=== PATIENT | female | born 1990 | race Caucasian/White ===

== ENCOUNTER 2017-04-12 15:47 | Inpatient (IN) | payer BC ==
[2017-04-12] MEDS ORDERED: Sodium Chloride 0.9% 10 ML Syringe FLUSH PRN ×2 (15:54→16:45)
[2017-04-12] MEDS ORDERED: Sodium Chloride 0.9% 2.5 ML Syringe FLUSH PRN ×2 (15:54→16:45)
[2017-04-12] MEDS ORDERED: Misoprostol 200 MCG Tab PO PRN (15:54)
[2017-04-12] MEDS ORDERED: Methylergonovine 0.2 MG/1 ML Amp IM PRN (15:54)
[2017-04-12] MEDS ORDERED: Carboprost Tromethamine 250 MCG/1 ML Amp IM PRN (15:54)
[2017-04-12] MEDS ORDERED: Nalbuphine 10 MG/1 ML Vial IVPUSH PRN (15:54)
[2017-04-12] MEDS ORDERED: Water For Irrigation,Sterile 1,000 ML Container IRR PRN (15:54)
[2017-04-12] MEDS ORDERED: Butorphanol 1 MG/ML SDV IVPUSH PRN (15:54)
[2017-04-12] MEDS ORDERED: Lidocaine 1% 50 ML MDV INJECT PRN (15:54)
[2017-04-12] MEDS ORDERED: Oxytocin/0.9 % Sodium Chloride 30 UNIT/500 ML BAG IV SCH ×2 (16:00→16:45)
[2017-04-12] MEDS: Lactated Ringers 1,000 ML IV SCH ×3 (16:00→20:00)
[2017-04-12] MEDS ORDERED: Citric Acid/Sodium Citrate Solution 30 ML Cup PO SCH (16:45)
[2017-04-12] MEDS ORDERED: ceFAZolin 2 GM in Premix Bag 1 BAG IV ONE (16:45)
[2017-04-12] MEDS ORDERED: Lactated Ringers 1,000 ML IV SCH (16:45)
[2017-04-12] MEDS ORDERED: Morphine PF 1 MG/ML Amp ONE (16:47)
[2017-04-12] MEDS ORDERED: ceFAZolin 1 GM Vial ONE (16:53)
[2017-04-12] MEDS ORDERED: Ketorolac 30 MG/ML SDV ONE ×2 (16:53→16:54)
[2017-04-12] MEDS ORDERED: Ondansetron 4 MG/2 ML SDV ONE (16:53)
[2017-04-12] MEDS ORDERED: Nalbuphine 10 MG/1 ML Vial ONE ×2 (16:53→16:54)
[2017-04-12] MEDS ORDERED: ePHEDrine 50 MG/ML SDV ONE ×2 (16:53→16:54)
[2017-04-12] MEDS ORDERED: Dexamethasone 4 MG/ML 5 ML MDV ONE ×2 (16:53→16:54)
[2017-04-12] MEDS ORDERED: Terbutaline 1 MG/ML SDV SUBCUT ONE (17:00)
[2017-04-12] MEDS ORDERED: Succinylcholine/Normal Saline 200 MG/10 ML Syringe ONE (17:24)
[2017-04-12] MEDS ORDERED: Atropine 0.4 MG/ML SDV ONE ×2 (17:24→17:41)
[2017-04-12] MEDS ORDERED: Propofol 200 MG/20 ML SDV ONE (17:28)
[2017-04-12] MEDS: Ketorolac 30 MG/ML SDV IVPUSH SCH (17:30)
[2017-04-12] MEDS ORDERED: diphenhydrAMINE 50 MG/ML SDV IVPUSH PRN (18:31)
[2017-04-12] MEDS ORDERED: Ondansetron 4 MG/2 ML SDV IVPUSH PRN (18:31)
[2017-04-12] MEDS ORDERED: Bisacodyl 10 MG Supp RECTAL PRN (18:31)
[2017-04-12] MEDS ORDERED: Lanolin 100% Cream 7 GM Tube TOP PRN (18:31)
[2017-04-12] MEDS: fentaNYL 100 MCG/2 ML SDV IVPUSH PRN ×2 (18:35→18:40)
--- NOTE | 2017-04-12 18:44 | PCM.PREANE ---
Preanesthetic Assessment - Anesthesia/Transfusion/Family Hx Anesthesia History: Prior Anesthesia Without Reaction Family History of Anesthesia Reaction: No Transfusion History: No Prior Transfusion(s) - Review of Systems General: No Symptoms Pulmonary: No Symptoms Cardiovascular: No Symptoms Gastrointestinal: No Symptoms Neurological: No Symptoms Other: Reports: None - Physical Assessment NPO Status Date: 04/12/17 NPO Status Time: 12:00 O2 Sat by Pulse Oximetry: 100 Respiratory Rate: 21 Vital Signs: Last Vital Signs Temp 36.2 C 04/12/17 18:15 Pulse 76 04/12/17 18:30 Resp 21 H 04/12/17 18:30 BP 114/57 L 04/12/17 18:30 Pulse Ox 100 04/12/17 18:30 Height: 5 ft 4 in Weight: 208 lb ASA Class: 2E Mental Status: Alert & Oriented x3 Airway Class: Mallampati = 2 Dentition: Reports: Normal Dentition Thyro-Mental Finger Breadths: 3 Mouth Opening Finger Breadths: 3 ROM/Head Extension: Full Lungs: Clear to Auscultation, Normal Respiratory Effort Cardiovascular: Regular Rate, Regular Rhythm - Lab Values: Laboratory Last Values WBC 11.87 K/uL (4.0-11.0) H 04/12/17 16:10 RBC 4.54 M/uL (4.30-5.90) 04/12/17 16:10 Hgb 14.2 g/dL (12.0-16.0) 04/12/17 16:10 Hct 40.2 % (36.0-46.0) 04/12/17 16:10 MCV 88.5 fL (80.0-98.0) 04/12/17 16:10 MCH 31.3 pg (27.0-32.0) 04/12/17 16:10 MCHC 35.3 g/dL (31.0-37.0) 04/12/17 16:10 RDW Std Deviation 40.8 fl (28.0-62.0) 04/12/17 16:10 RDW Coeff of Roma 13 % (11.0-15.0) 04/12/17 16:10 Plt Count 185 K/uL (150-400) 04/12/17 16:10 MPV 11.50 fL (7.40-12.00) 04/12/17 16:10 Nucleated RBC % 0.0 /100WBC 04/12/17 16:10 Nucleated RBCs # 0 K/uL 04/12/17 16:10 Blood Type B POSITIVE 04/12/17 16:10 Antibody Screen NEGATIVE 04/12/17 16:10 - Allergies Allergies/Adverse Reactions: Allergies Allergy/AdvReac Type Severity Reaction Status Date / Time No Known Allergies Allergy Verified 09/17/14 17:58 - Acknowledgements Anesthesia Type Planned: General Anesthesia, Spinal Pt an Appropriate Candidate for the Planned Anesthesia: Yes Alternatives and Risks of Anesthesia Discussed w Pt/Guardian: Yes Pt/Guardian Understands and Agrees with Anesthesia Plan: Yes Additional Comments: care unremarkable. Cephalic earlier today....now in active labor and just went from cephalic to transverse with 8 to 9 cm dilation. VSS and reassuring signs. Plan SAB with duramorph and GETA backup plan. Patient accepts. PreAnesthesia Questionnaire HEENT History: Reports: None Other Respiratory History: exercise- induced asthma POLISHER BALANCE SCREWHEAD History: Reports: , Spontaneous Psychiatric History: Reports: None Hematologic History: Reports: None - Past Surgical History HEENT Surgical History: Reports: Oral Surgery GI Surgical History: Reports: Appendectomy Other GI Surgeries/Procedures: colon resection Other Musculoskeletal Surgeries/Procedures:: jaw surgery - SUBSTANCE USE Smoking Status *Q: Never Smoker Tobacco Use Within Last Twelve Months: Cigarettes Second Hand Smoke Exposure: No Recreational Drug Use History: No - HOME MEDS Home Medications: Home Meds Acetaminophen [Tylenol Extra Strength] 1,000 mg PO Q4H PRN #0 tablet 01/20/16 [ Rx] Benzocaine/Menthol [Dermoplast Pain Relief 20%-0.5% [place]] 78 gm TOP ASDIRECTED PRN #0 canister 01/20/16 [Rx] Docusate Sodium [Colace] 100 mg PO BID PRN #0 cap 01/20/16 [Rx] Ibuprofen [IJD: Ibuprofen] 800 mg PO Q6H PRN #0 tablet 01/20/16 [Rx] - CURRENT (IN HOUSE) MEDS Current Meds: Current Medications Bisacodyl (Dulcolax) 10 mg RECTAL .ONCE PRN PRN Reason: Constipation Diphenhydramine HCl (Benadryl) 25 mg IVPUSH Q6H PRN PRN Reason: Itching or Nausea Docusate Sodium (Colace) 100 mg PO BID [facility] Emollient Ointment (Lansinoh Hpa) 0 gm TOP ASDIRECTED PRN PRN Reason: Sore Nipples Fentanyl (Sublimaze) 50 - 100 mcg IVPUSH Q5M PRN PRN Reason: Pain (severe 7-10) Stop: 04/13/17 18:38 Lactated Ringer's (Ringers, Lactated) 1,000 mls @ 125 mls/hr IV ASDIRECTED [facility] Ibuprofen (Motrin) 800 mg PO Q8H PRN PRN Reason: mild pain or fever Ketorolac Tromethamine (Toradol) 30 mg IVPUSH Q6H [facility] Stop: 04/13/17 18:46 Ondansetron HCl (Zofran) 4 mg IV Q4H PRN PRN Reason: Nausea/Vomiting Oxycodone/Acetaminophen (Percocet 325-5 Mg) 1 tab PO Q4H PRN PRN Reason: Pain (moderate 4-6) Oxycodone/Acetaminophen (Percocet 325-5 Mg) 2 tab PO Q4H PRN PRN Reason: Pain (moderate 4-6) Discontinued Medications Atropine Sulfate (Atropine) Confirm Administered Dose 0.4 mg .ROUTE .STK-MED ONE Stop: 04/12/17 17:25 Atropine Sulfate (Atropine) Confirm Administered Dose 0.4 mg .ROUTE .STK-MED ONE Stop: 04/12/17 17:42 Butorphanol Tartrate (Stadol) 1 mg IVPUSH Q1H PRN PRN Reason: Pain Carboprost Tromethamine (Hemabate Ds) 250 mcg IM ASDIRECTED PRN PRN Reason: Post Hemorrhage Cefazolin Sodium (Ancef) Confirm Administered Dose 2 gm .ROUTE .STK-MED ONE Stop: 04/12/17 16:54 Citric Acid/Sodium Citrate (Bicitra Solution) 30 ml PO .ONCE [facility] Dexamethasone (Dexamethasone) Confirm Administered Dose 20 mg .ROUTE .STK-MED ONE Stop: 04/12/17 16:54 Dexamethasone (Dexamethasone) Confirm Administered Dose 20 mg .ROUTE .STK-MED ONE Stop: 04/12/17 16:55 Ephedrine Sulfate (Ephedrine Sulfate) Confirm Administered Dose 50 mg .ROUTE .STK-MED ONE Stop: 04/12/17 16:54 Ephedrine Sulfate (Ephedrine Sulfate) Confirm Administered Dose 50 mg .ROUTE .STK-MED ONE Stop: 04/12/17 16:55 Lactated Ringer's (Ringers, Lactated) 1,000 mls @ 150 mls/hr IV ASDIRECTED [facility] Last Admin: 04/12/17 16:55 Dose: 500 mls/hr Oxytocin/Sodium Chloride (Oxytocin 30 Unit/500 Ml-Ns) 30 unit in 500 mls @ 999 mls/hr IV TITRATE [facility] Oxytocin/Sodium Chloride (Oxytocin 30 Unit/500 Ml-Ns) 30 unit in 500 mls @ 250 mls/hr IV TIT[facility] Lactated Ringer's (Ringers, Lactated) 1,000 mls @ 500 mls/hr IV .BOLUS [facility] Cefazolin Sodium/Dextrose 2 gm (/ Premix) 50 mls @ 100 mls/hr IV ONETIME ONE Stop: 04/12/17 17:14 Ketorolac Tromethamine (Toradol) Confirm Administered Dose 30 mg .ROUTE .STK- MED ONE Stop: 04/12/17 16:54 Ketorolac Tromethamine (Toradol) Confirm Administered Dose 30 mg .ROUTE .STK- MED ONE Stop: 04/12/17 16:55 Lidocaine HCl (Xylocaine 1%) 50 ml INJECT .ONCE PRN PRN Reason: Laceration repair Methylergonovine Maleate (Methergine) 0.2 mg IM ASDIRECTED PRN PRN Reason: Post Hemorrhage Misoprostol (Cytotec) 200 mcg PO .ONCE PRN PRN Reason: Post Hemorrhage Morphine Sulfate (Duramorph Pf) Confirm Administered Dose 1 mg .ROUTE .STK-MED ONE Stop: 04/12/17 16:48 Nalbuphine HCl (Nubain) 10 mg IVPUSH Q1H PRN PRN Reason: Pain (severe 7-10) Nalbuphine HCl (Nubain) Confirm Administered Dose 10 mg .ROUTE .STK-MED ONE Stop: 04/12/17 16:54 Nalbuphine HCl (Nubain) Confirm Administered Dose 10 mg .ROUTE .STK-MED ONE Stop: 04/12/17 16:55 Ondansetron HCl (Zofran) Confirm Administered Dose 4 mg .ROUTE .STK-MED ONE Stop: 04/12/17 16:54 Propofol (Diprivan 20 Ml) Confirm Administered Dose 400 mg .ROUTE .STK-MED ONE Stop: 04/12/17 17:29 Sodium Chloride (Saline Flush) 10 ml FLUSH ASDIRECTED PRN PRN Reason: Keep Vein Open Sodium Chloride (Saline Flush) 2.5 ml FLUSH ASDIRECTED PRN PRN Reason: Keep Vein Open Sodium Chloride (Saline Flush) 10 ml FLUSH ASDIRECTED PRN PRN Reason: Keep Vein Open Sodium Chloride (Saline Flush) 2.5 ml FLUSH ASDIRECTED PRN PRN Reason: Keep Vein Open Sterile Water (Sterile Water For Irrigation) 1,000 ml IRR ASDIRECTED PRN PRN Reason: delivery Succinylcholine Chloride (Succinylcholine In Ns Pf) Confirm Administered Dose 200 mg .ROUTE .STK-MED ONE Stop: 04/12/17 17:25 Terbutaline Sulfate (Brethine) 0.25 mg SUBCUT ONETIME ONE Stop: 04/12/17 17:01
--- NOTE | 2017-04-12 18:53 | PCM.OPNOTE ---
- General Post-Op/Procedure Note Date of Surgery/Procedure: 04/12/17 Operative Procedure(s): Emergency section Findings: Female , Wt 3275grams, Apgars 8 and 9. Grossly normal placenta with 3 vessel cord. Normal uterus, ovaries and tubes Pre Op Diagnosis: IUP 38 weeks. Transverse position in active labor Post-Op Diagnosis: Same Anesthesia Technique: General ET Tube Primary Surgeon: Nelida Amos Patient Safety Sitter: Vivi Lepe Fluid Replacement, Intraop: 1,000 Output, Urine Amount: 200 EBL in mLs: 1,000 Complications: None Condition: Good Free Text/Narrative:: Intake & Output 04/12/17 04/12/17 04/12/17 06:59 14:59 22:59 Output Total 200 Balance -200
[2017-04-12] MEDS: Morphine PF 30 MG/30 ML PCA Vial IV SCH (19:00)
[2017-04-12] MEDS: Docusate Sodium 100 MG Cap PO SCH (23:56)
[2017-04-13] MEDS: Morphine PF 30 MG/30 ML PCA Vial IV SCH ×3 (00:16→15:39)
[2017-04-13] MEDS: Ketorolac 30 MG/ML SDV IVPUSH SCH ×3 (00:24→12:35)
--- NOTE | 2017-04-13 01:25 | OR ---
SURGEON: Nelida Amos MD DATE OF PROCEDURE: 04/12/2017 BRIDGE GANG WORKER: Dr. Lepe. PREOPERATIVE DIAGNOSES: 1. Intrauterine at 38 weeks gestation. 2. Transverse lie, in active labor. POSTOPERATIVE DIAGNOSES: 1. Intrauterine gestation at 38 weeks. 2. Unstable lie in active labor,Breech presentation at delivery. 3. Delivered. PROCEDURE: Emergency low transverse section via Pfannenstiel. ANESTHESIA: General endotracheal. ESTIMATED BLOOD LOSS: 1000 mL. IV FLUIDS: 1000 mL. URINE OUTPUT: 200 mL, clear at the end of the procedure. DISPOSITION: Stable to PACU FINDINGS: Female , weight 3275 grams, score 8 and 9 at 1 and 5 minutes respectively. Grossly normal placenta with 3-vessel cord. Normal appearing uterus, tubes, and ovaries. Extensive adhesions on the left side between the sigmoid colon and the parietal peritoneum. BRIEF HISTORY: Stephanie is a 26-year-old, G3, P 1-0-1-1, who presented to Labor and Delivery at 38 weeks gestation in active labor. When she examined by the admitting RN, she was found to be 6 cm dilated,cephalic presentation. She progressed rather fast and was 8cm within 30mins of her presentation. When I evaluated her, I felt limbs, limbs and she was 8-9 cm dilated, 100% effaced, intact membrane. Bedside sonogram confirmed a transverse lie with head to maternal right, back up. Based on these findings, an emergent section was called after discussing the procedure risk and benefits with the patient. The patient was good every 1 to 2minutes, CAT 1 tracing and Terbutaline was administered enroute to the OR DESCRIPTION OF PROCEDURE: After several unsuccessful attempts at placement of spinal anesthesia by the anesthetic personnel, she was placed in dorsal lithotomy position, prepped and draped, and a rapid induction of general anesthesia was performed. Appropriate time-out was held and she received 2 g of Ancef. A Pfannenstiel incision was made and carried through to the underlying fascia with the scalpel. The fascia was incised in the midline and this incision was extended laterally with blunt dissection. The rectus muscle was in the midline. The underlying parietal peritoneum was identified and entered bluntly. The incision was extended laterally. A bladder blade was placed. A transverse incision was then made on the uterus with a scalpel and this incision was extended upwards and downwards bluntly. Clear amniotic fluid was noted. The was found to be in an flexed breech presentation. The feet were then grasped, lifted out of the pelvis and the infant was then delivered by routine breech extraction maneuvers atraumatically. The was vigorous and cried spontaneously upon delivery. The cord was double clamped and cut, and the infant was handed over to the awaiting medical imaging director, Dr. Drew. Cord blood and gas samples were obtained. The placenta was delivered spontaneously by massage. The uterus was exteriorized and cleaned of all clots and debris. The edges of the uterine incision were then grasped with Allis clamps. The incision was closed in 2 layers using 0 Vicryl suture. The first layer was closed in a running locked fashion and a second imbricating layer was performed to obtain excellent hemostasis. Copious irrigation was performed. Then, the gutters were cleaned of clots and debris and the uterus was returned into the abdominal cavity. The sigmoid colon was noted to be extensively adherent to the parietal peritoneum on the left side and this was very close to the edge of the peritoneal incision. Based on this finding, the peritoneal layer was not closed. The muscle was reapproximated with 2-0 Vicryl using three interrupted sutures. The subfacial layer was found to be hemostatic The fascia was closed with 0 Vicryl suture in a running fashion. The subcuticular layer was made hemostatic with electrocautery and this layer was approximated with 3-0 plain sutures. The skin was then closed using subcuticular stitches using 4-0 Monocryl suture. The patient tolerated the procedure well. Sponge, instrument, and needle counts were correct at the end of the procedure. The patient was taken to the recovery room in stable condition and baby to nursery in stable condition. ADUMVIV / MODL /[id number] DAVY
[2017-04-13] MEDS: Lactated Ringers 1,000 ML IV SCH (04:18)
--- NOTE | 2017-04-13 08:31 | PCM48HPAN ---
Post Anesthesia Note - EVALUATION WITHIN 48HRS OF ANESTHETIC Vital Signs in Normal Range: Yes Patient Participated in Evaluation: Yes Respiratory Function Stable: Yes Airway Patent: Yes Cardiovascular Function Stable: Yes Hydration Status Stable: Yes Pain Control Satisfactory: Yes Nausea and Vomiting Control Satisfactory: Yes Mental Status Recovered: Yes - COMMENTS/OBSERVATIONS Free Text/Narrative:: no back ache, no head ache, mild throat irritation not requiring treatment
[2017-04-13] MEDS: Docusate Sodium 100 MG Cap PO SCH ×2 (09:41→22:04)
--- NOTE | 2017-04-13 10:32 | PCM.PNPP ---
- General Info Functional Status: Reports: Pain Controlled. Denies: Tolerating Diet (no nausea , but no appetite), Ambulating, Urinating (catheter in place) - Review of Systems General: Reports: No Symptoms HEENT: Reports: No Symptoms Pulmonary: Reports: No Symptoms Cardiovascular: Reports: No Symptoms Gastrointestinal: Reports: No Symptoms Genitourinary: Reports: No Symptoms Musculoskeletal: Reports: No Symptoms Skin: Reports: No Symptoms Neurological: Reports: No Symptoms Psychiatric: Reports: No Symptoms - Patient Data Vital Signs - Most Recent: Last Vital Signs Temp 36.5 C 04/13/17 08:00 Pulse 81 04/13/17 08:00 Resp 14 04/13/17 08:00 BP 93/53 L 04/13/17 08:00 Pulse Ox 95 04/13/17 08:00 Weight - Most Recent: 94.347 kg I&O - Last 24 Hours: Intake & Output 04/12/17 04/13/17 04/13/17 22:59 06:59 14:59 Intake Total 2800 Output Total 775 400 Balance 2024 - Lab Results - Last 24 Hours: Laboratory Results - last 24 hr 04/12/17 04/12/17 04/13/17 Range/Units 16:10 16:10 05:45 WBC 11.87 H (4.0-11.0) K/uL RBC 4.54 (4.30-5.90) M/uL Hgb 14.2 11.0 L (12.0-16.0) g/dL Hct 40.2 31.9 L (36.0-46.0) % MCV 88.5 (80.0-98.0) fL MCH 31.3 (27.0-32.0) pg MCHC 35.3 (31.0-37.0) g/dL RDW Std Deviation 40.8 (28.0-62.0) fl RDW Coeff of Roma 13 (11.0-15.0) % Plt Count 185 (150-400) K/uL MPV 11.50 (7.40-12.00) fL Nucleated RBC % 0.0 /100WBC Nucleated RBCs # 0 K/uL Blood Type B POSITIVE Antibody Screen NEGATIVE Med Orders - Current: Current Medications Bisacodyl (Dulcolax) 10 mg RECTAL .ONCE PRN PRN Reason: Constipation Diphenhydramine HCl (Benadryl) 25 mg IVPUSH Q6H PRN PRN Reason: Itching or Nausea Docusate Sodium (Colace) 100 mg PO BID [facility] Last Admin: 04/13/17 09:41 Dose: 100 mg Emollient Ointment (Lansinoh Hpa) 0 gm TOP ASDIRECTED PRN PRN Reason: Sore Nipples Last Admin: 04/13/17 09:41 Dose: 1 tube Escitalopram Oxalate (Lexapro) 10 mg PO DAILY [facility] Fentanyl (Sublimaze) 50 - 100 mcg IVPUSH Q5M PRN PRN Reason: Pain (severe 7-10) Stop: 04/13/17 18:38 Last Admin: 04/12/17 18:40 Dose: 50 mcg Lactated Ringer's (Ringers, Lactated) 1,000 mls @ 125 mls/hr IV ASDIRECTED [facility] Last Admin: 04/13/17 04:18 Dose: 125 mls/hr Ibuprofen (Motrin) 800 mg PO Q8H PRN PRN Reason: mild pain or fever Ketorolac Tromethamine (Toradol) 30 mg IVPUSH Q6H [facility] Stop: 04/13/17 18:46 Last Admin: 04/13/17 07:17 Dose: 30 mg Measles/Mumps/Rubella Vaccine Live (M-M-R Ii Vaccine) 0.5 ml SUBCUT .ONCE ONE Stop: 04/14/17 09:01 Morphine Sulfate (Morphine Electrical Tests Supervisor 30 Mg In 30 Ml) 30 mg IV ASDIRECTED [facility] PRN Reason: Protocol Last Admin: 04/13/17 07:43 Dose: 30 mg Ondansetron HCl (Zofran) 4 mg IVPUSH Q4H PRN PRN Reason: Nausea/Vomiting Oxycodone/Acetaminophen (Percocet 325-5 Mg) 1 tab PO Q4H PRN PRN Reason: Pain (moderate 4-6) Oxycodone/Acetaminophen (Percocet 325-5 Mg) 2 tab PO Q4H PRN PRN Reason: Pain (moderate 4-6) Discontinued Medications Atropine Sulfate (Atropine) Confirm Administered Dose 0.4 mg .ROUTE .STK-MED ONE Stop: 04/12/17 17:25 Atropine Sulfate (Atropine) Confirm Administered Dose 0.4 mg .ROUTE .STK-MED ONE Stop: 04/12/17 17:42 Butorphanol Tartrate (Stadol) 1 mg IVPUSH Q1H PRN PRN Reason: Pain Carboprost Tromethamine (Hemabate Ds) 250 mcg IM ASDIRECTED PRN PRN Reason: Post Hemorrhage Cefazolin Sodium (Ancef) Confirm Administered Dose 2 gm .ROUTE .STK-MED ONE Stop: 04/12/17 16:54 Citric Acid/Sodium Citrate (Bicitra Solution) 30 ml PO .ONCE [facility] Dexamethasone (Dexamethasone) Confirm Administered Dose 20 mg .ROUTE .STK-MED ONE Stop: 04/12/17 16:54 Dexamethasone (Dexamethasone) Confirm Administered Dose 20 mg .ROUTE .STK-MED ONE Stop: 04/12/17 16:55 Ephedrine Sulfate (Ephedrine Sulfate) Confirm Administered Dose 50 mg .ROUTE .STK-MED ONE Stop: 04/12/17 16:54 Ephedrine Sulfate (Ephedrine Sulfate) Confirm Administered Dose 50 mg .ROUTE .ST-MED ONE Stop: 04/12/17 16:55 Lactated Ringer's (Ringers, Lactated) 1,000 mls @ 150 mls/hr IV ASDIRECTED [facility] Last Admin: 04/12/17 16:55 Dose: 500 mls/hr Oxytocin/Sodium Chloride (Oxytocin 30 Unit/500 Ml-Ns) 30 unit in 500 mls @ 999 mls/hr IV TITRATE [facility] Oxytocin/Sodium Chloride (Oxytocin 30 Unit/500 Ml-Ns) 30 unit in 500 mls @ 250 mls/hr IV TITRATE [facility] Lactated Ringer's (Ringers, Lactated) 1,000 mls @ 500 mls/hr IV .[facility] Cefazolin Sodium/Dextrose 2 gm (/ Premix) 50 mls @ 100 mls/hr IV ONETIME ONE Stop: 04/12/17 17:14 Last Admin: 04/12/17 16:55 Dose: 100 mls/hr Ketorolac Tromethamine (Toradol) Confirm Administered Dose 30 mg .ROUTE .STK- MED ONE Stop: 04/12/17 16:54 Ketorolac Tromethamine (Toradol) Confirm Administered Dose 30 mg .ROUTE .STK- MED ONE Stop: 04/12/17 16:55 Lidocaine HCl (Xylocaine 1%) 50 ml INJECT .ONCE PRN PRN Reason: Laceration repair Methylergonovine Maleate (Methergine) 0.2 mg IM ASDIRECTED PRN PRN Reason: Post Hemorrhage Misoprostol (Cytotec) 200 mcg PO .ONCE PRN PRN Reason: Post Hemorrhage Morphine Sulfate (Duramorph Pf) Confirm Administered Dose 1 mg .ROUTE .STK-MED ONE Stop: 04/12/17 16:48 Nalbuphine HCl (Nubain) 10 mg IVPUSH Q1H PRN PRN Reason: Pain (severe 7-10) Nalbuphine HCl (Nubain) Confirm Administered Dose 10 mg .ROUTE .STK-MED ONE Stop: 04/12/17 16:54 Nalbuphine HCl (Nubain) Confirm Administered Dose 10 mg .ROUTE .STK-MED ONE Stop: 04/12/17 16:55 Ondansetron HCl (Zofran) Confirm Administered Dose 4 mg .ROUTE .STK-MED ONE Stop: 04/12/17 16:54 Propofol (Diprivan 20 Ml) Confirm Administered Dose 400 mg .ROUTE .STK-MED ONE Stop: 04/12/17 17:29 Sodium Chloride (Saline Flush) 10 ml FLUSH ASDIRECTED PRN PRN Reason: Keep Vein Open Sodium Chloride (Saline Flush) 2.5 ml FLUSH ASDIRECTED PRN PRN Reason: Keep Vein Open Sodium Chloride (Saline Flush) 10 ml FLUSH ASDIRECTED PRN PRN Reason: Keep Vein Open Sodium Chloride (Saline Flush) 2.5 ml FLUSH ASDIRECTED PRN PRN Reason: Keep Vein Open Sterile Water (Sterile Water For Irrigation) 1,000 ml IRR ASDIRECTED PRN PRN Reason: delivery Succinylcholine Chloride (Succinylcholine In Ns Pf) Confirm Administered Dose 200 mg .ROUTE .STK-MED ONE Stop: 04/12/17 17:25 Terbutaline Sulfate (Brethine) 0.25 mg SUBCUT ONETIME ONE Stop: 04/12/17 17:01 Last Admin: 04/12/17 18:58 Dose: 0.25 mg - Infant Interaction Infant Disposition, : in Room with Family Infant Interaction: Not Interacting Feeding: Breastfed Infant; Nursed Well Support Person: Significant Other - Recovery Exam Fundal Tone: Firm Fundal Level: 1 Fingerbreadths Below Umbilicus Fundal Placement: Midline Lochia Amount: Scant Lochia Color: Rubra/Red Perineum Description: Intact, Minimal Bruising/Swelling Episiotomy/Laceration: None Bladder Status: Indwelling Catheter in Place Urinary Elimination: Indwelling Catheter - Exam General: Alert, Oriented HEENT: Pupils Equal Neck: Supple Lungs: Clear to Auscultation, Normal Respiratory Effort Cardiovascular: Regular Rate, Regular Rhythm GI/Abdominal Exam: Normal Bowel Sounds, Soft, Non-Tender, No Organomegaly, No Distention Extremities: Normal Inspection, Non-Tender, No Pedal Edema Skin: Warm, Dry, Intact Wound/Incisions: Dressing Dry and Intact Neurological: No New Focal Deficit Psy/Mental Status: Alert, Normal Affect, Normal Mood (patient is appropriate, but states she has been very irritable in last few weeks, mother had depression, would like to get started on something for depression in hospital.) - Problem List & Annotations (1) Obstructed labor due to malposition and malpresentation SNOMED Code(s): 586933189 Code(s): O64.9XX0 - OBSTRUCTED LABOR DUE TO MALPOS AND MALPRESENT, UNSP, UNSP Status: Acute Current Visit: Yes Qualifiers: Type of malposition/malpresentation: other Fetus number: single or unspecified fetus Qualified Code(s): O64.8XX0 - Obstructed labor due to other malposition and malpresentation, not applicable or unspecified (2) delivery delivered SNOMED Code(s): 215938573 Code(s): O82 - ENCOUNTER FOR DELIVERY WITHOUT INDICATION Status: Acute Current Visit: Yes (3) Adhesion of intestine SNOMED Code(s): 07605611 Code(s): K66.0 - PERITONEAL ADHESIONS (POSTPROCEDURAL) (POSTINFECTION) Status: Acute Current Visit: Yes (4) depression SNOMED Code(s): 89359786 Code(s): F53 - PUERPERAL PSYCHOSIS Status: Acute Current Visit: Yes - Problem List Review Problem List Initiated/Reviewed/Updated: Yes - My Orders Last 24 Hours: My Active Orders 04/14/17 09:00 Escitalopram [Lexapro] 10 mg PO DAILY - Assessment Assessment:: POD #1 after emergent for unable lie in labor, converted to transverse /breech. Stable pain well controlled with HAND SEWER SHOES, denies nausea, but no appetite at this time. Reviewed operative findings including extensive bowel adhesions on right lower abdomen. She would like to start antidepressant in the hospital. is planning vasectomy in the near future, would like coverage in the meantime. - Plan Plan:: Continue postop care, consider oliveros out, oral pain meds and ambulation this afternoon if tolerates diet. Still on HAND SEWER SHOES due to general anesthetic for emergent .
[2017-04-13] MEDS: Acetaminophen/oxyCODONE 325-5 MG Tab PO PRN ×2 (17:52→22:02)
[2017-04-13 22:32] VITALS: BP 111/58
[2017-04-14] MEDS: Acetaminophen/oxyCODONE 325-5 MG Tab PO PRN ×2 (02:22→11:59)
[2017-04-14] MEDS: Ibuprofen 800 MG Tab PO PRN ×2 (02:24→12:00)
[2017-04-14] MEDS: Ketorolac 30 MG/ML SDV IVPUSH SCH (03:28)
[2017-04-14] MEDS ORDERED: Escitalopram 10 MG Tab PO SCH (09:00)
[2017-04-14] MEDS ORDERED: Measles, Mumps & Rubella Vaccine 0.5 ML SDV SUBCUT ONE (09:00)
[2017-04-14] MEDS: Docusate Sodium 100 MG Cap PO SCH (09:08)
--- NOTE | 2017-04-14 09:51 | PCM.PNPP ---
- General Info Date of Service: 04/14/17 Functional Status: Reports: Pain Controlled, Tolerating Diet, Ambulating, Urinating - Review of Systems General: Reports: No Symptoms HEENT: Reports: No Symptoms Pulmonary: Reports: No Symptoms Cardiovascular: Reports: No Symptoms Gastrointestinal: Reports: No Symptoms Genitourinary: Reports: No Symptoms Musculoskeletal: Reports: No Symptoms Skin: Reports: No Symptoms Neurological: Reports: No Symptoms Psychiatric: Reports: No Symptoms - Patient Data Vital Signs - Most Recent: Last Vital Signs Temp 37.0 C 04/13/17 22:30 Pulse 68 04/13/17 22:30 Resp 16 04/13/17 22:30 BP 111/58 L 04/13/17 22:30 Pulse Ox 94 L 04/13/17 22:30 Weight - Most Recent: 94.347 kg I&O - Last 24 Hours: Intake & Output 04/13/17 04/14/17 04/14/17 22:59 06:59 14:59 Intake Total 800 Output Total 1600 Balance -800 Med Orders - Current: Current Medications Bisacodyl (Dulcolax) 10 mg RECTAL .ONCE PRN PRN Reason: Constipation Diphenhydramine HCl (Benadryl) 25 mg IVPUSH Q6H PRN PRN Reason: Itching or Nausea Docusate Sodium (Colace) 100 mg PO BID [facility] Last Admin: 04/14/17 09:08 Dose: 100 mg Emollient Ointment (Lansinoh Hpa) 0 gm TOP ASDIRECTED PRN PRN Reason: Sore Nipples Last Admin: 04/13/17 09:41 Dose: 1 tube Escitalopram Oxalate (Lexapro) 10 mg PO DAILY [facility] Last Admin: 04/14/17 09:08 Dose: 10 mg Lactated Ringer's (Ringers, Lactated) 1,000 mls @ 125 mls/hr IV ASDIRECTED [facility] Last Admin: 04/13/17 04:18 Dose: 125 mls/hr Ibuprofen (Motrin) 800 mg PO Q8H PRN PRN Reason: mild pain or fever Last Admin: 04/14/17 02:24 Dose: 800 mg Morphine Sulfate (Morphine Office Support Specialist 30 Mg In 30 Ml) 30 mg IV ASDIRECTED [facility] PRN Reason: Protocol Last Admin: 04/13/17 15:39 Dose: 30 mg Ondansetron HCl (Zofran) 4 mg IVPUSH Q4H PRN PRN Reason: Nausea/Vomiting Oxycodone/Acetaminophen (Percocet 325-5 Mg) 1 tab PO Q4H PRN PRN Reason: Pain (moderate 4-6) Last Admin: 04/14/17 02:22 Dose: 1 tab Oxycodone/Acetaminophen (Percocet 325-5 Mg) 2 tab PO Q4H PRN PRN Reason: Pain (moderate 4-6) Last Admin: 04/13/17 22:02 Dose: 2 tab Discontinued Medications Atropine Sulfate (Atropine) Confirm Administered Dose 0.4 mg .ROUTE .STK-MED ONE Stop: 04/12/17 17:25 Atropine Sulfate (Atropine) Confirm Administered Dose 0.4 mg .ROUTE .STK-MED ONE Stop: 04/12/17 17:42 Butorphanol Tartrate (Stadol) 1 mg IVPUSH Q1H PRN PRN Reason: Pain Carboprost Tromethamine (Hemabate Ds) 250 mcg IM ASDIRECTED PRN PRN Reason: Post Hemorrhage Cefazolin Sodium (Ancef) Confirm Administered Dose 2 gm .ROUTE .STK-MED ONE Stop: 04/12/17 16:54 Citric Acid/Sodium Citrate (Bicitra Solution) 30 ml PO .ONCE [facility] Dexamethasone (Dexamethasone) Confirm Administered Dose 20 mg .ROUTE .STK-MED ONE Stop: 04/12/17 16:54 Dexamethasone (Dexamethasone) Confirm Administered Dose 20 mg .ROUTE .STK-MED ONE Stop: 04/12/17 16:55 Ephedrine Sulfate (Ephedrine Sulfate) Confirm Administered Dose 50 mg .ROUTE .STK-MED ONE Stop: 04/12/17 16:54 Ephedrine Sulfate (Ephedrine Sulfate) Confirm Administered Dose 50 mg .ROUTE .STK-MED ONE Stop: 04/12/17 16:55 Fentanyl (Sublimaze) 50 - 100 mcg IVPUSH Q5M PRN PRN Reason: Pain (severe 7-10) Stop: 04/13/17 18:38 Last Admin: 04/12/17 18:40 Dose: 50 mcg Lactated Ringer's (Ringers, Lactated) 1,000 mls @ 150 mls/hr IV ASDIRECTED [facility] Last Admin: 04/12/17 16:55 Dose: 500 mls/hr Oxytocin/Sodium Chloride (Oxytocin 30 Unit/500 Ml-Ns) 30 unit in 500 mls @ 999 mls/hr IV TITRATE [facility] Oxytocin/Sodium Chloride (Oxytocin 30 Unit/500 Ml-Ns) 30 unit in 500 mls @ 250 mls/hr IV TITRATE [facility] Lactated Ringer's (Ringers, Lactated) 1,000 mls @ 500 mls/hr IV .BOLUS [facility] Cefazolin Sodium/Dextrose 2 gm (/ Premix) 50 mls @ 100 mls/hr IV ONETIME ONE Stop: 04/12/17 17:14 Last Admin: 04/12/17 16:55 Dose: 100 mls/hr Ketorolac Tromethamine (Toradol) Confirm Administered Dose 30 mg .ROUTE .STK- MED ONE Stop: 04/12/17 16:54 Ketorolac Tromethamine (Toradol) Confirm Administered Dose 30 mg .ROUTE .STK- MED ONE Stop: 04/12/17 16:55 Ketorolac Tromethamine (Toradol) 30 mg IVPUSH Q6H [facility] Stop: 04/13/17 18:46 Last Admin: 04/14/17 03:28 Dose: Not Given Lidocaine HCl (Xylocaine 1%) 50 ml INJECT .ONCE PRN PRN Reason: Laceration repair Measles/Mumps/Rubella Vaccine Live (M-M-R Ii Vaccine) 0.5 ml SUBCUT .ONCE ONE Stop: 04/14/17 09:01 Methylergonovine Maleate (Methergine) 0.2 mg IM ASDIRECTED PRN PRN Reason: Post Hemorrhage Misoprostol (Cytotec) 200 mcg PO .ONCE PRN PRN Reason: Post Hemorrhage Morphine Sulfate (Duramorph Pf) Confirm Administered Dose 1 mg .ROUTE .STK-MED ONE Stop: 04/12/17 16:48 Nalbuphine HCl (Nubain) 10 mg IVPUSH Q1H PRN PRN Reason: Pain (severe 7-10) Nalbuphine HCl (Nubain) Confirm Administered Dose 10 mg .ROUTE .STK-MED ONE Stop: 04/12/17 16:54 Nalbuphine HCl (Nubain) Confirm Administered Dose 10 mg .ROUTE .STK-MED ONE Stop: 04/12/17 16:55 Ondansetron HCl (Zofran) Confirm Administered Dose 4 mg .ROUTE .STK-MED ONE Stop: 04/12/17 16:54 Propofol (Diprivan 20 Ml) Confirm Administered Dose 400 mg .ROUTE .STK-MED ONE Stop: 04/12/17 17:29 Sodium Chloride (Saline Flush) 10 ml FLUSH ASDIRECTED PRN PRN Reason: Keep Vein Open Sodium Chloride (Saline Flush) 2.5 ml FLUSH ASDIRECTED PRN PRN Reason: Keep Vein Open Sodium Chloride (Saline Flush) 10 ml FLUSH ASDIRECTED PRN PRN Reason: Keep Vein Open Sodium Chloride (Saline Flush) 2.5 ml FLUSH ASDIRECTED PRN PRN Reason: Keep Vein Open Sterile Water (Sterile Water For Irrigation) 1,000 ml IRR ASDIRECTED PRN PRN Reason: delivery Succinylcholine Chloride (Succinylcholine In Ns Pf) Confirm Administered Dose 200 mg .ROUTE .STK-MED ONE Stop: 04/12/17 17:25 Terbutaline Sulfate (Brethine) 0.25 mg SUBCUT ONETIME ONE Stop: 04/12/17 17:01 Last Admin: 04/12/17 18:58 Dose: 0.25 mg - Infant Interaction Infant Disposition, : in Room with Family Interaction: Not Interacting Feeding: Breastfed ; Nursed Well Support Person: Significant Other - Recovery Exam Fundal Tone: Firm Fundal Level: 2 Fingerbreadths Above Umbilicus Fundal Placement: Midline Lochia Amount: Scant Lochia Color: Rubra/Red Perineum Description: Intact, Minimal Bruising/Swelling Episiotomy/Laceration: None Bladder Status: Voiding Urinary Elimination: Other (see below) Other Urinary Elimination, : voiding - Exam General: Alert, Oriented HEENT: Pupils Equal Neck: Supple Lungs: Clear to Auscultation, Normal Respiratory Effort Cardiovascular: Regular Rate, Regular Rhythm GI/Abdominal Exam: Normal Bowel Sounds, Soft, Non-Tender, No Distention, No Mass Extremities: Normal Inspection, Non-Tender, No Pedal Edema Skin: Warm, Dry, Intact Wound/Incisions: Healing Well Neurological: No New Focal Deficit Psy/Mental Status: Alert, Normal Affect, Normal Mood - Problem List & Annotations (1) Obstructed labor due to malposition and malpresentation SNOMED Code(s): 768838559 Code(s): O64.9XX0 - OBSTRUCTED LABOR DUE TO MALPOS AND MALPRESENT, UNSP, UNSP Status: Acute Current Visit: Yes Qualifiers: Type of malposition/malpresentation: other Fetus number: single or unspecified fetus Qualified Code(s): O64.8XX0 - Obstructed labor due to other malposition and malpresentation, not applicable or unspecified (2) delivery delivered SNOMED Code(s): 273195509 Code(s): O82 - ENCOUNTER FOR DELIVERY WITHOUT INDICATION Status: Acute Current Visit: Yes (3) Adhesion of intestine SNOMED Code(s): 30494036 Code(s): K66.0 - PERITONEAL ADHESIONS (POSTPROCEDURAL) (POSTINFECTION) Status: Chronic Priority: Low Current Visit: No Onset Date: ~04/01/08 (4) mood disturbance SNOMED Code(s): 86079619 Code(s): O90.6 - MOOD DISTURBANCE Status: Acute Current Visit : Yes - Problem List Review Problem List Initiated/Reviewed/Updated: Yes - My Orders Last 24 Hours: My Active Orders 04/14/17 09:00 Escitalopram [Lexapro] 10 mg PO DAILY - Assessment Assessment:: POD #2 after emergent for unable lie in labor, converted to transverse /breech. Pain well controlled with oral medication, she has ambulated and passed flatus. Would like to go home today. - Plan Plan:: Dismiss to home, discharge precautions reviewed including depression symptoms to call for.
== END 2017-04-14 12:55 | disposition home or self-care (01) | DRG 540 ==
LOC: MW.OBCHECK 15:47 → MW.OB 15:49 → MW.OBCHECK 15:54 → MW.OB 16:05 → OBSVTOIN 17:33 → MW.OB 23:54
PROVIDERS: ADMIT Obstetrics & Gynecology; ATTEND Obstetrics & Gynecology
PROC: 10D00Z1 Extraction of Products of Conception, Low, Open Approach (ICD-10-PCS; principal; 2017-04-12)
DX: O64.8XX0 Obstructed labor due to other malposition and malpresentation, not applicable or unspecified (principal); Z3A.38 38 weeks gestation of pregnancy; Z37.0 Single live birth; F53 Mental and behavioral disorders associated with the puerperium, not elsewhere classified; Z87.891 Personal history of nicotine dependence
CPT/HCPCS: 01961; 36415; 59025; 85014; 85018; 85027; 86850; 86900; 86901; 90471; 90707; A9270-GY; J0461; J0690; J1100; J1885; J2274; J2300; J2405; J2704; J3010; J3105; J7120

== ENCOUNTER 2017-09-29 10:52 | Emergency (ER) | payer BC ==
--- NOTE | 2017-09-29 11:18 | EDM.PDOC ---
ED HPI GENERAL MEDICAL PROBLEM - General Chief Complaint: Abdominal Pain Stated Complaint: PAIN(PT SPOKE TO NURSE) Time Seen by Provider: 09/29/17 11:11 Source of Information: Reports: Patient History Limitations: Reports: No Limitations - History of Present Illness INITIAL COMMENTS - FREE TEXT/NARRATIVE: HISTORY AND PHYSICAL: 27-year-old female presenting with lower abdominal pain 3 days History of Present Illness: []Patient had procedure of fallopian tube removal for prevention Patient had previous procedures of appendectomy that had ruptured and ended up with adhesions which made this surgery more difficult Patients having difficulty sitting straight up on the cart. Patient states that she tried calling her surgeon and no one returned her call Patient had this procedure completed at [facility] in [place] [address] Hernández. Review of Systems: As per history of present illness and below otherwise all systems reviewed and negative. Past medical history: As per history of present illness and as reviewed below otherwise noncontributory. Surgical history: As per history of present illness and as reviewed below otherwise noncontributory. Social history: No reported history of drug or alcohol abuse. Family history: As per history of present illness and as reviewed below otherwise noncontributory. Physical exam: Alert female who looks to be in some distress. She is speaking in full sentences without any shortness of breath. Nontoxic in appearance HEENT: Atraumatic, normocehpalic, pupils reactive, negative for conjunctival pallor or scleral icterus, mucous membranes moist, throat clear, neck supple, nontender, trachea midline. Lungs: Clear to auscultation, breath sounds equal bilaterally, chest non tender. Heart: S1S2, regular, negative for clicks, rubs, or JVD. Abdomen: Soft, nondistended, exquisitely tender on palpation. Negative for masses or hepatossplenmegaly. Negative for costovertebral tenderness. Pelvis: Stable nontender. Genitourinary: Deferred. Rectal: Deferred Extremities: Atraumatic, negative for cords or calf pain. Neurovascular unremarkable. Neuro: Awake, alert, oriented. Cranial nerves II through XII unremarkable. Cerebellum unremarkable. Motor and sensory unremarkable throughout. Exam nonfocal. Have discussed negative lab results with the patient her ultrasound of her abdomen does show mildly dilated gallbladder stones or sludge Diagnostics: []CBC CMP UA CT abdomen and pelvis Therapeutics: []Zofran normal saline morphine Impression: []Abdominal pain Plan: []Return home You need to return to your surgeon for follow-up Definitive disposition and diagnosis as appropriate pending reevaluation and review of above. Onset: Today, Sudden Duration: Getting Worse Location: Reports: Abdomen Quality: Reports: Throbbing Severity: Severe Improves with: Reports: None Worsens with: Reports: None Associated Symptoms: Reports: No Other Symptoms Bilateral Lower Abdominal Pain Score (Numeric/FACES): 9 - Related Data Allergies Allergy/AdvReac Type Severity Reaction Status Date / Time No Known Allergies Allergy Verified 09/29/17 11:04 Home Meds: Home Meds Acetaminophen [Tylenol Extra Strength] 1,000 mg PO Q4H PRN #0 tablet 01/20/16 [ Rx] Escitalopram [Lexapro] 10 mg PO DAILY #30 tablet 04/13/17 [Rx] Past Medical History HEENT History: Reports: None Other Respiratory History: exercise- induced asthma 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: , Spontaneous Psychiatric History: Reports: Depression Hematologic History: Reports: None - Infectious Disease History Infectious Disease History: Reports: Chicken Pox - Past Surgical History HEENT Surgical History: Reports: Oral Surgery GI Surgical History: Reports: Appendectomy Other GI Surgeries/Procedures: colon resection Female Surgical History: Reports: Other (See Below) Other Female Surgeries/Procedures: bilat fallopian tube removal Other Musculoskeletal Surgeries/Procedures:: jaw surgery Social & Family History - Tobacco Use Smoking Status *Q: Current Every Day Smoker Years of Tobacco use: 3 Packs/Tins Daily: 0.2 - Caffeine Use Caffeine Use: Reports: Coffee - Recreational Drug Use Recreational Drug Use: No ED ROS GENERAL - Review of Systems Review Of Systems: ROS reveals no pertinent complaints other than HPI. ED EXAM, RENAL/ - Physical Exam Exam: See Below (see dictation) Course - Vital Signs Last Recorded V/S: Last Vital Signs Temp 36.7 C 09/29/17 12:50 Pulse 64 09/29/17 15:11 Resp 18 09/29/17 15:11 BP 108/61 09/29/17 15:11 Pulse Ox 98 09/29/17 13:29 - Orders/Labs/Meds Orders: Active Orders 24 hr Category Date Time Status Abdomen Ltd [US] Stat Exams 09/29/17 13:15 Taken Abdomen Pelvis w Cont [CT] Stat Exams 09/29/17 11:19 Taken UA W/MICROSCOPIC [URIN] Stat Lab 09/29/17 11:20 Ordered Sodium Chloride 0.9% [Saline Flush] Med 09/29/17 11:19 Active 10 ml FLUSH ASDIRECTED PRN Sodium Chloride 0.9% [Saline Flush] Med 09/29/17 11:19 Active 2.5 ml FLUSH ASDIRECTED PRN Saline Lock Insert [OM.PC] Stat Oth 09/29/17 11:19 Ordered Medication Orders Sodium Chloride (Saline Flush) 10 ml FLUSH ASDIRECTED PRN PRN Reason: Keep Vein Open Last Admin: 09/29/17 11:20 Dose: 10 ml Sodium Chloride (Saline Flush) 2.5 ml FLUSH ASDIRECTED PRN PRN Reason: Keep Vein Open Last Admin: 09/29/17 11:21 Dose: 2.5 ml Labs: Laboratory Tests 09/29/17 09/29/17 09/29/17 Range/Units 11:20 11:20 11:20 WBC 10.56 (4.0-11.0) K/uL RBC 5.07 (4.30-5.90) M/uL Hgb 15.9 (12.0-16.0) g/dL Hct 45.8 (36.0-46.0) % MCV 90.3 (80.0-98.0) fL MCH 31.4 (27.0-32.0) pg MCHC 34.7 (31.0-37.0) g/dL RDW Std Deviation 43.0 (28.0-62.0) fl RDW Coeff of Roma 13 (11.0-15.0) % Plt Count 246 (150-400) K/uL MPV 11.50 (7.40-12.00) fL Neut % (Auto) 70.9 (48.0-80.0) % Lymph % (Auto) 15.8 L (16.0-40.0) % [place] % (Auto) 9.3 (0.0-15.0) % Eos % (Auto) 3.8 (0.0-7.0) % Baso % (Auto) 0.2 (0.0-1.5) % Neut # (Auto) 7.5 H (1.4-5.7) K/uL Lymph # (Auto) 1.7 (0.6-2.4) K/uL [place] # (Auto) 1.0 H (0.0-0.8) K/uL Eos # (Auto) 0.4 (0.0-0.7) K/uL Baso # (Auto) 0.0 (0.0-0.1) K/uL Nucleated RBC % 0.0 /100WBC Nucleated RBCs # 0 K/uL Sodium 140 (136-145) mmol/L Potassium 4.8 (3.5-5.1) mmol/L Chloride 104 (98-107) mmol/L Carbon Dioxide 28.5 (21.0-32.0) mmol/L BUN 13 (7.0-18.0) mg/dL Creatinine 1.0 (0.6-1.0) mg/dL Est Cr Clr Drug Dosing 73.62 mL/min Estimated GFR (MDRD) > 60.0 ml/min Glucose 98 (74-106) mg/dL Calcium 9.5 (8.5-10.1) mg/dL Total Bilirubin 0.5 (0.2-1.0) mg/dL AST 12 L (15-37) IU/L ALT 17 (14-63) IU/L Alkaline Phosphatase 48 (46-116) U/L Total Protein 7.3 (6.4-8.2) g/dL Albumin 3.8 (3.4-5.0) g/dL Globulin 3.5 (2.0-3.5) g/dL Albumin/Globulin Ratio 1.1 L (1.3-2.8) Urine Color YELLOW Urine Appearance CLEAR Urine pH 6.0 (5.0-8.0) Ur Specific Kelley >= 1.030 (1.001-1.035) Urine Protein NEGATIVE (NEGATIVE) mg/dL Urine Glucose (UA) NEGATIVE (NEGATIVE) mg/dL Urine Ketones TRACE H (NEGATIVE) mg/dL Urine Occult Blood SMALL H (NEGATIVE) Urine Nitrite NEGATIVE (NEGATIVE) Urine Bilirubin SMALL H (NEGATIVE) Urine Ictotest NEGATIVE Urine Urobilinogen 1.0 (<2.0) EU/dL Ur Leukocyte Esterase NEGATIVE (NEGATIVE) Urine RBC 0-1 (0-2/HPF) Urine WBC 0-1 (0-5/HPF) Ur Epithelial Cells MODERATE (NONE-FEW) Urine Bacteria FEW (NEGATIVE) Meds: Medications Generic Name Dose Route Start Last Admin Trade Name Deepika PRN Reason Stop Dose Admin Sodium Chloride 10 ml 09/29/17 11:19 09/29/17 11:20 Saline Flush FLUSH 10 ml ASDIRECTED PRN Administration Keep Vein Open Sodium Chloride 2.5 ml 09/29/17 11:19 09/29/17 11:21 Saline Flush FLUSH 2.5 ml ASDIRECTED PRN Administration Keep Vein Open Discontinued Medications Generic Name Dose Route Start Last Admin Trade Name Freq PRN Reason Stop Dose Admin Sodium Chloride 1,000 mls @ 999 mls/hr 09/29/17 11:19 09/29/17 11:30 Normal Saline IV 09/29/17 12:19 999 mls/hr STAT ONE Administration Iopamidol 100 ml 09/29/17 12:29 09/29/17 12:35 Isovue Multipack-370 (76%) IVPUSH 09/29/17 12:30 100 ml ONETIME ONE Administration Morphine Sulfate 4 mg 09/29/17 11:19 09/29/17 11:46 Morphine IVPUSH 09/29/17 11:20 Not Given ONETIME ONE Morphine Sulfate Confirm 09/29/17 11:28 09/29/17 11:40 Morphine Administered 09/29/17 11:29 4 mg Dose Administration 4 mg .ROUTE .STK-MED ONE Morphine Sulfate 2 mg 09/29/17 13:16 09/29/17 13:27 Morphine IVPUSH 09/29/17 13:17 2 mg ONETIME ONE Administration Morphine Sulfate 4 mg 09/29/17 14:51 09/29/17 15:08 Morphine IVPUSH 09/29/17 14:52 4 mg ONETIME ONE Administration Ondansetron HCl 4 mg 09/29/17 11:19 09/29/17 11:37 Zofran IVPUSH 09/29/17 11:20 4 mg ONETIME ONE Administration Departure - Departure Time of Disposition: 15:21 Disposition: Home, Self-Care 01 Condition: Good Clinical Impression: Post-operative pain Abdominal pain Qualifiers: Abdominal location: unspecified location Qualified Code(s): R10.9 - Unspecified abdominal pain - Discharge Information Referrals: PCP,None [Primary Care Provider] - Forms: ED Department Discharge Additional Instructions: The following information is given to patients seen in the emergency department who are being discharged to home. This information is to outline your options for follow-up care. We provide all patients seen in our emergency department with a follow-up referral. The need for follow-up, as well as the timing and circumstances, are variable depending upon the specifics of your emergency department visit. If you don't have a primary care physician on staff, we will provide you with a referral. We always advise you to contact your personal physician following an emergency department visit to inform them of the circumstance of the visit and for follow-up with them and/or the need for any referrals to a consulting specialist. The emergency department will also refer you to a specialist when appropriate. This referral assures that you have the opportunity for followup care with a specialist. All of these measure are taken in an effort to provide you with optimal care, which includes your followup. Under all circumstances we always encourage you to contact your private physician who remains a resource for coordinating your care. When calling for followup care, please make the office aware that this follow-up is from your recent emergency room visit. If for any reason you are refused follow-up, please contact the [facility] emergency department at and asked to speak to the emergency department charge nurse. No cause was specifically identified for your abdominal pain It is felt to be a combination of fatty foods and your postoperative pain combined Have a distended gallbladder And will need to eventually have this removed You need to have a low fat diet/attic foods will trigger your gallbladder disease Pain medication tramadol 50 mg one 3 times daily as needed for pain #9 tablets this should give you enough time to get in to see her surgeon - My Orders Last 24 Hours: My Active Orders 09/29/17 11:19 Abdomen Pelvis w Cont [CT] Stat Sodium Chloride 0.9% [Saline Flush] 10 ml FLUSH ASDIRECTED PRN Sodium Chloride 0.9% [Saline Flush] 2.5 ml FLUSH ASDIRECTED PRN Saline Lock Insert [OM.PC] Stat 09/29/17 11:20 UA W/MICROSCOPIC [URIN] Stat 09/29/17 13:15 Abdomen Ltd [US] Stat - Assessment/Plan Last 24 Hours: My Active Orders 09/29/17 11:19 Abdomen Pelvis w Cont [CT] Stat Sodium Chloride 0.9% [Saline Flush] 10 ml FLUSH ASDIRECTED PRN Sodium Chloride 0.9% [Saline Flush] 2.5 ml FLUSH ASDIRECTED PRN Saline Lock Insert [OM.PC] Stat 09/29/17 11:20 UA W/MICROSCOPIC [URIN] Stat 09/29/17 13:15 Abdomen Ltd [US] Stat
[2017-09-29] MEDS ORDERED: Morphine 4 MG/ML Syringe IVPUSH ONE ×2 (11:19→14:51)
[2017-09-29] MEDS ORDERED: Sodium Chloride 0.9% 10 ML Syringe FLUSH PRN (11:19)
[2017-09-29] MEDS ORDERED: Sodium Chloride 0.9% 2.5 ML Syringe FLUSH PRN (11:19)
[2017-09-29] MEDS ORDERED: Sodium Chloride 0.9% 1,000 ML IV ONE (11:19)
[2017-09-29] MEDS ORDERED: Ondansetron 4 MG/2 ML SDV IVPUSH ONE (11:19)
[2017-09-29] MEDS ORDERED: Morphine 2 MG/ML Syringe ONE (11:28)
[2017-09-29 11:51] LABS: CHLORIDE,CL 104 mmol/L (98-107); SODIUM,NA 140 mmol/L (136-145)
[2017-09-29] MEDS ORDERED: Iopamidol 755 MG/ML 200 ML Multipack Bottle IVPUSH ONE (12:29)
[2017-09-29] MEDS ORDERED: Morphine 2 MG/ML Syringe IVPUSH ONE (13:16)
[2017-09-29 15:12] VITALS: BP 108/61
--- NOTE | 2017-09-30 18:41 | CT ---
EXAM DATE: 09/29/17 PATIENT'S AGE: 27 Patient: SHARONA SILVA Facility: [place], [place] Site . Site : 1990 Study: CT Abdomen/Pelvis W PARAG [id number]/1/2018 12:47:14 PM Ordering Physician: Doctor Singh Final Report: HISTORY: Bilateral lower abdominal pain. Pelvic surgery within the last week. TECHNIQUE: CT abdomen and pelvis with IV contrast. COMPARISON: None. FINDINGS: Abdomen: No liver lesions. Postoperative free intraperitoneal gas extends into the evelyn hepatis. Common duct is mildly dilated up to 9 mm. Mild central intrahepatic bile duct dilation. Gallbladder is distended. No pericolonic inflammatory change. No pancreatic mass or pancreatic duct dilation. No spleen lesions. No adrenal nodules. Kidneys enhance symmetrically. No renal mass. No hydronephrosis. No dilated bowel. Small amount of free fluid in the abdomen and pelvis. No well- defined fluid collection. No lymphadenopathy. Abdominal aorta is normal caliber. Pelvis: Stranding of intraperitoneal pelvic fat. No lymphadenopathy. Tampon in the vagina. Musculoskeletal: Chronic bilateral L5 pars interarticularis defects. No subluxation. Lower chest: Minimal atelectasis in the lung bases. IMPRESSION: 1. Small amount of free fluid in the abdomen and pelvis with stranding of pelvic fat and free intraperitoneal gas consistent with recent surgery. No well- defined drainable fluid collection. 2. Mild bile duct dilation and mild gallbladder distention. Correlate with findings of biliary obstruction and cholecystitis. Please note that all CT scans at this facility use dose modulation, iterative reconstruction, and/or weight-based dosing when appropriate to reduce radiation dose to as low as reasonably achievable. Dictated by Venu Hendrickson MD @ Sep 29 2017 1:10PM (Electronic Signature) Report Signed by Proxy. [facility]
--- NOTE | 2017-09-30 18:52 | US ---
EXAM DATE: 09/29/17 PATIENT'S AGE: 27 Patient: SHARONA SILVA Facility: [place], [place] Site . Site : 1990 Study: US Abdomen [id number]/1/[id number] 2:19:39 PM Ordering Physician: Doctor Singh Final Report: INDICATION: Generalized abdominal pain. Five days status post surgical removal of fallopian tubes. TECHNIQUE: Ultrasound abdomen limited. Sonographic images of the right upper quadrant were obtained using rose-scale and color Doppler images. COMPARISON: CT abdomen pelvis September 29, 2017. FINDINGS: Liver: Normal in size and echotexture. No masses. No intrahepatic biliary dilatation. Gallbladder: Gallbladder is mildly distended. No stones or sludge. Normal wall thickness. No pericholecystic fluid. Common bile duct: 6 mm. Pancreas: Pancreatic duct is in the upper limits of normal. Pancreas is otherwise normal. Right kidney: Normal in size. Normal echotexture and cortex. No masses, stones, or hydronephrosis. IMPRESSION: Gallbladder is mildly distended and there is borderline dilatation of the common bile and pancreatic ducts. No other signs of cholecystitis or cholelithiasis. Exam is otherwise unremarkable. Dictated by Stephen Erickson MD @ Sep 29 2017 2:59PM (Electronic Signature) Report Signed by Proxy. [facility]
== END 2017-09-29 15:40 | disposition home or self-care (01) ==
LOC: MW.ED 10:52
DX: G89.18 Other acute postprocedural pain (principal); R10.30 Lower abdominal pain, unspecified; Z79.899 Other long term (current) drug therapy; F17.210 Nicotine dependence, cigarettes, uncomplicated; Z98.890 Other specified postprocedural states
CPT/HCPCS: 36415; 74177; 76705; 80053; 81001; 85025; 96361; 96374; 96375; 96376; 99284; J2270; J2405; J7040; Q9967; 99283

== ENCOUNTER 2017-10-05 05:13 | Observation (INO) | payer BC ==
[2017-10-05] MEDS ORDERED: Sodium Chloride 0.9% 10 ML Syringe FLUSH PRN (05:26)
[2017-10-05] MEDS ORDERED: Sodium Chloride 0.9% 2.5 ML Syringe FLUSH PRN ×2 (05:26)
[2017-10-05] MEDS ORDERED: HYDROmorphone 2 MG/ML SDV IVPUSH ONE (05:26)
[2017-10-05] MEDS ORDERED: Sodium Chloride 0.9% 1,000 ML IV ONE (05:26)
[2017-10-05] MEDS ORDERED: Ondansetron 4 MG/2 ML SDV IVPUSH ONE ×2 (05:30→23:14)
--- NOTE | 2017-10-05 05:30 | EDM.PDOC ---
<Barber Bright - Last Filed: 10/05/17 07:20> ED HPI GENERAL MEDICAL PROBLEM - General Chief Complaint: Abdominal Pain Stated Complaint: STOMACH PAIN Time Seen by Provider: 10/05/17 05:29 Source of Information: Reports: Patient, Family History Limitations: Reports: No Limitations - History of Present Illness INITIAL COMMENTS - FREE TEXT/NARRATIVE: HISTORY AND PHYSICAL: History of present illness: 27-year-old female presenting to emergency department with acute left upper quadrant abdominal pain with history of recent abdominal surgery (Salpingectomy , Cholecystectomy, Adhesion takedown) Patient woke up at 2:30 AM this morning with acute left upper quadrant abdominal pain. Took two 10 mg Percocet which did not help. She also had associated nausea and one bowel movement that was firm with bright red blood. She's had fever and chills on and off through the weekend. She also states that she had blood in her urine this a.m. as well. Patient currently denies any chest pain, palpitations, syncopal episodes, or focal neurologic deficits. She is having some mild shortness of breath with her pain and rates it as 10 out of 10. Patient has had multiple recent abdominal surgeries. First surgery was approximately 2-1/2 weeks ago when she had a bilateral salpingectomy for control at [facility] Dr. Hernández. Surgery was complicated secondary to multiple adhesions from an appendectomy that she had as a child. Appendectomy as a child was complicated secondary to rupture and significant involvement of surrounding tissues which resulted in a bowel resection. States that she started having complications after the salpingectomy and initially they thought that they may have perforated the bowel. Patient presented here on September 29 for increased abdominal pain which they thought may be secondary to gallstones. She was transferred back to [place] where she had her salpingectomy. She had significant abdominal surgery that involved a cholecystectomy as well as removal of multiple adhesions and further exploration to determine if there was a bowel perforation. This was performed on September 29. Patient was in the hospital in [place] until 10/03 and was treated with IV antibiotics during her entire hospital stay. No antibiotics were sent home with her. States that her pain has been under control using Percocet 10 mg on a regular scheduled up until 2:30 AM this morning at which time she started to have her initial symptoms. Patient has no medical allergies and takes Lexapro for depression. She has been otherwise healthy and takes no other medications. Initial exam patient is in significant distress, abdominal binder in place. she is exquisitely tender in the left upper quadrant but also has generalized abdominal tenderness. Abdomen is however soft, nondistended, there are hypoactive bowel sounds. There is a mid-line ventral abdominal incision that shows no erythema or drainage. There are three laproscopic incisions one in the right mid quadrant, one in the left mid quadrant, and one in the right suprapubic area. All are clean and dry without erythema or drainage. 0610- CBC shows leukocytosis 12,600, CMP revealed elevated LFT's with AST at 50 , ALT at 129, alkaline phosphatase at 207, with a normal total bilirubin is 0.4. These are all elevated since 09/29/17. 0700- CT revealed severe distention the cecum measuring 10 cm with gradual transition to normal caliber at the level of the splenic flexure. Dr. Ramirez, surgery, was counsulted. Review of systems: As per history of present illness and below otherwise all systems reviewed and negative. Past medical history: As per history of present illness and as reviewed below otherwise noncontributory. Surgical history: As per history of present illness and as reviewed below otherwise noncontributory. Social history: No reported history of drug or alcohol abuse. Family history: As per history of present illness and as reviewed below otherwise noncontributory. Physical exam: HEENT: Atraumatic, normocephalic, pupils reactive, negative for conjunctival pallor or scleral icterus, mucous membranes moist, throat clear, neck supple, nontender, trachea midline. Lungs: Clear to auscultation, breath sounds equal bilaterally, chest nontender. Heart: S1S2, regular, negative for clicks, rubs, or JVD. Abdomen: See above H&P, Soft, Tender generally but more localized to LUQ. Negative for masses or hepatosplenomegaly. Negative for costovertebral tenderness. Pelvis: Stable nontender. Genitourinary: Deferred. Rectal: Deferred. Extremities: Atraumatic, negative for cords or calf pain. Neurovascular unremarkable. Neuro: Awake, alert, oriented. Cranial nerves II through XII unremarkable. Cerebellum unremarkable. Motor and sensory unremarkable throughout. Exam nonfocal. Diagnostics: CBC, CMP, blood culture 2, lipase, UA/UC, CT abdomen pelvis Therapeutics: 1 L normal saline 1, 8 mg Zofran IV 1, Dilaudid 1 mg IV 3, fentanyl 100 g 1 Impression: Possible bowel obstruction Possible SBP Plan: Dr. Razo took over care of this patient at 0730 he was updated on patient exam , labs, diagnostics. General surgery was consulted Dr. Loving, definitive disposition and diagnosis as appropriate pending reevaluation and re Definitive disposition and diagnosis as appropriate pending reevaluation and review of above. 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: , Spontaneous Psychiatric History: Reports: Depression Hematologic History: Reports: None - Infectious Disease History Infectious Disease History: Reports: Chicken Pox - Past Surgical History HEENT Surgical History: Reports: Oral Surgery GI Surgical History: Reports: Appendectomy Other GI Surgeries/Procedures: colon resection Female Surgical History: Reports: Other (See Below) Other Female Surgeries/Procedures: bilat fallopian tube removal Other Musculoskeletal Surgeries/Procedures:: jaw surgery Social & Family History - Tobacco Use Smoking Status *Q: Current Every Day Smoker Years of Tobacco use: 10 Packs/Tins Daily: 0.5 - Caffeine Use Caffeine Use: Reports: Coffee Course - Vital Signs Last Recorded V/S: Last Vital Signs Temp 36.6 C 10/05/17 05:25 Pulse 84 10/05/17 06:45 Resp 16 10/05/17 06:45 BP 124/86 10/05/17 06:45 Pulse Ox 100 10/05/17 06:45 - Orders/Labs/Meds Orders: Active Orders 24 hr Category Date Time Status Abdomen Pelvis w Cont [CT] Stat Exams 10/05/17 05:26 Taken CULTURE BLOOD [BC] Stat Lab 10/05/17 05:35 Received CULTURE BLOOD [BC] Stat Lab 10/05/17 05:50 Received CULTURE URINE [RM] Stat Lab 10/05/17 05:26 Ordered UA W/MICROSCOPIC [URIN] Stat Lab 10/05/17 05:26 Ordered Sodium Chloride 0.9% [Saline Flush] Med 10/05/17 05:26 Active 10 ml FLUSH ASDIRECTED PRN Sodium Chloride 0.9% [Saline Flush] Med 10/05/17 05:26 Active 2.5 ml FLUSH ASDIRECTED PRN Sodium Chloride 0.9% [Saline Flush] Med 10/05/17 05:26 Active 2.5 ml FLUSH ASDIRECTED PRN Blood Culture x2 Reflex Set [OM.PC] Stat Oth 10/05/17 05:27 Ordered Saline Lock Insert [OM.PC] Stat Ot 10/05/17 05:26 Ordered Medication Orders Sodium Chloride (Saline Flush) 2.5 ml FLUSH ASDIRECTED PRN PRN Reason: Keep Vein Open Last Admin: 10/05/17 05:39 Dose: 2.5 ml Sodium Chloride (Saline Flush) 10 ml FLUSH ASDIRECTED PRN PRN Reason: Keep Vein Open Last Admin: 10/05/17 05:39 Dose: 10 ml Sodium Chloride (Saline Flush) 2.5 ml FLUSH ASDIRECTED PRN PRN Reason: Keep Vein Open Last Admin: 10/05/17 05:39 Dose: 2.5 ml Labs: Laboratory Tests 10/05/17 10/05/17 Range/Units 05:30 05:30 WBC 12.60 H (4.0-11.0) K/uL RBC 4.98 (4.30-5.90) M/uL Hgb 15.7 (12.0-16.0) g/dL Hct 43.8 (36.0-46.0) % MCV 88.0 (80.0-98.0) fL MCH 31.5 (27.0-32.0) pg MCHC 35.8 (31.0-37.0) g/dL RDW Std Deviation 40.3 (28.0-62.0) fl RDW Coeff of Roma 13 (11.0-15.0) % Plt Count 344 (150-400) K/uL MPV 10.70 (7.40-12.00) fL Neut % (Auto) 87.9 H (48.0-80.0) % Lymph % (Auto) 6.5 L (16.0-40.0) % [place] % (Auto) 4.8 (0.0-15.0) % Eos % (Auto) 0.7 (0.0-7.0) % Baso % (Auto) 0.1 (0.0-1.5) % Neut # (Auto) 11.1 H (1.4-5.7) K/uL Lymph # (Auto) 0.8 (0.6-2.4) K/uL [place] # (Auto) 0.6 (0.0-0.8) K/uL Eos # (Auto) 0.1 (0.0-0.7) K/uL Baso # (Auto) 0.0 (0.0-0.1) K/uL Nucleated RBC % 0.0 /100WBC Nucleated RBCs # 0 K/uL Sodium 135 L (136-145) mmol/L Potassium 4.2 (3.5-5.1) mmol/L Chloride 99 (98-107) mmol/L Carbon Dioxide 22.8 (21.0-32.0) mmol/L BUN 8 (7.0-18.0) mg/dL Creatinine 0.8 (0.6-1.0) mg/dL Est Cr Clr Drug Dosing 92.02 mL/min Estimated GFR (MDRD) > 60.0 ml/min Glucose 119 H (74-106) mg/dL Calcium 9.1 (8.5-10.1) mg/dL Total Bilirubin 0.4 (0.2-1.0) mg/dL AST 50 H (15-37) IU/L ALT 129 H (14-63) IU/L Alkaline Phosphatase 207 H (46-116) U/L Total Protein 7.0 (6.4-8.2) g/dL Albumin 3.2 L (3.4-5.0) g/dL Globulin 3.8 H (2.0-3.5) g/dL Albumin/Globulin Ratio 0.8 L (1.3-2.8) Lipase 252 (73-393) U/L Meds: Medications Generic Name Dose Route Start Last Admin Trade Name Freq PRN Reason Stop Dose Admin Sodium Chloride 2.5 ml 10/05/17 05:26 10/05/17 05:39 Saline Flush FLUSH 2.5 ml ASDIRECTED PRN Administration Keep Vein Open Sodium Chloride 10 ml 10/05/17 05:26 10/05/17 05:39 Saline Flush FLUSH 10 ml ASDIRECTED PRN Administration Keep Vein Open Sodium Chloride 2.5 ml 10/05/17 05:26 10/05/17 05:39 Saline Flush FLUSH 2.5 ml ASDIRECTED PRN Administration Keep Vein Open Discontinued Medications Generic Name Dose Route Start Last Admin Trade Name Freq PRN Reason Stop Dose Admin Fentanyl 100 mcg 10/05/17 06:45 10/05/17 06:57 Sublimaze IVPUSH 10/05/17 06:46 Not Given ONETIME ONE Fentanyl Confirm 10/05/17 06:50 10/05/17 06:57 Sublimaze Administered 10/05/17 06:51 Not Given Dose 100 mcg .ROUTE .STK-MED ONE Fentanyl 100 mcg 10/05/17 06:52 10/05/17 06:53 Sublimaze IVPUSH 10/05/17 06:53 100 mcg NOW STA Administration Hydromorphone HCl 1 mg 10/05/17 05:26 10/05/17 05:38 Dilaudid IVPUSH 10/05/17 05:27 Not Given ONETIME ONE Hydromorphone HCl Confirm 10/05/17 05:31 10/05/17 05:38 Dilaudid Administered 10/05/17 05:32 Not Given Dose 1 mg .ROUTE .STK-MED ONE Hydromorphone HCl 1 mg 10/05/17 05:39 10/05/17 05:40 Dilaudid IVPUSH 10/05/17 05:40 1 mg ONETIME ONE Administration Hydromorphone HCl 1 mg 10/05/17 06:05 10/05/17 06:08 Dilaudid IVPUSH 10/05/17 06:06 1 mg ONETIME ONE Administration Hydromorphone HCl 1 mg 10/05/17 06:46 10/05/17 06:56 Dilaudid IVPUSH 10/05/17 06:47 1 mg ONETIME ONE Administration Sodium Chloride 1,000 mls @ 999 mls/hr 10/05/17 05:26 10/05/17 05:37 Normal Saline IV 10/05/17 06:26 999 mls/hr .Bolus ONE Administration Ceftriaxone Sodium/Dextrose 1 50 mls @ 100 mls/hr 10/05/17 05:50 10/05/17 06: 04 gm/ Premix IV 10/05/17 06:19 100 mls/hr ONETIME ONE Administration Iopamidol 100 ml 10/05/17 06:45 10/05/17 06:49 Isovue-370 (76%) IVPUSH 10/05/17 06:46 100 ml ONETIME ONE Administration Ondansetron HCl 8 mg 10/05/17 05:30 10/05/17 05:38 Zofran IVPUSH 10/05/17 05:31 8 mg ONETIME ONE Administration Ondansetron HCl Confirm 10/05/17 05:31 10/05/17 05:39 Zofran Administered 10/05/17 05:32 Not Given Dose 8 mg .ROUTE .STK-MED ONE Departure - Departure Disposition: Refer to Observation Clinical Impression: Abdominal pain Qualifiers: Abdominal location: unspecified location Qualified Code(s): R10.9 - Unspecified abdominal pain - Discharge Information Referrals: Den Turner MD [Primary Care Provider] - Forms: ED Department Discharge <Juancarlos Razo - Last Filed: 10/05/17 08:03> ED ROS GENERAL - Review of Systems Review Of Systems: ROS reveals no pertinent complaints other than HPI. ED EXAM, GENERAL - Physical Exam Exam: See Below (dictation) Course - Vital Signs Text/Narrative:: Gen. surgery was consulted Dr. Butler presented emergency department patient will be admitted for observation to Dr. Butler patient's emergency department course has been otherwise unremarkable Departure - Departure Time of Disposition: 08:03 Condition: Good
[2017-10-05] MEDS ORDERED: Ondansetron 4 MG/2 ML SDV ONE (05:31)
[2017-10-05] MEDS ORDERED: HYDROmorphone 1 MG/ML Syringe ONE (05:31)
[2017-10-05] MEDS ORDERED: HYDROmorphone 1 MG/ML Syringe IVPUSH ONE ×3 (05:39→06:46)
[2017-10-05] MEDS ORDERED: cefTRIAXone 1 GM in Premix Bag 1 BAG IV ONE (05:50)
[2017-10-05 06:00] LABS: CHLORIDE,CL 99 mmol/L (98-107); SODIUM,NA 135 mmol/L (136-145)
[2017-10-05] MEDS ORDERED: fentaNYL 250 MCG/5 ML SDV IVPUSH ONE (06:45)
[2017-10-05] MEDS ORDERED: Iopamidol 755 Mg/ML 100 ML Bottle IVPUSH ONE (06:45)
[2017-10-05] MEDS ORDERED: fentaNYL 100 MCG/2 ML SDV ONE (06:50)
[2017-10-05] MEDS ORDERED: fentaNYL 100 MCG/2 ML SDV IVPUSH STA (06:52)
--- NOTE | 2017-10-05 08:05 | PCM.HP ---
H&P History of Present Illness - General Date of Service: 10/05/17 Source of Information: Patient History Limitations: Reports: No Limitations - History of Present Illness Initial Comments - Free Text/Narative: Patient is a 27 year old female who presents with acute abdominal pain. Her past medical history is significant for a recent tubal ligation complicated by intra-abdominal adhesions. Saturday she underwent an open cholecystectomy and extensive lysis of adhesions per report in [facility]. She was discharged from the hospital on . Early this morning she was awoken from sleep with abdominal pain. She had nausea and one episode of emesis. She denies fevers , chills. She felt like she needed to have a BM. She couldn't go so she manually disimpacted herself. She then presented to the ER. She complains of left shoulder pain that has been present since surgery and is not improving. 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: , Spontaneous Psychiatric History: Reports: Depression Hematologic History: Reports: None - Infectious Disease History Infectious Disease History: Reports: Chicken Pox - Past Surgical History HEENT Surgical History: Reports: Oral Surgery GI Surgical History: Reports: Appendectomy, Cholecystectomy Other GI Surgeries/Procedures: colon resection Female Surgical History: Reports: Other (See Below) Other Female Surgeries/Procedures: bilat fallopian tube removal Other Musculoskeletal Surgeries/Procedures:: jaw surgery Social & Family History - Tobacco Use Smoking Status *Q: Current Every Day Smoker Years of Tobacco use: 10 Packs/Tins Daily: 0.5 - Caffeine Use Caffeine Use: Reports: Coffee H&P Review of Systems - Review of Systems: Review Of Systems: ROS reveals no pertinent complaints other than HPI. Exam - Exam Exam: See Below - Vital Signs Vital Signs: Last Vital Signs Temp 36.6 C 10/05/17 05:25 Pulse 84 10/05/17 06:45 Resp 16 10/05/17 06:45 BP 124/86 10/05/17 06:45 Pulse Ox 100 10/05/17 06:45 Weight: 83.915 kg - Exam General: Alert, Oriented HEENT: Conjunctiva Clear, Mucosa Moist & [place], Posterior Pharynx Clear Neck: Supple, Trachea Midline Lungs: Clear to Auscultation, Normal Respiratory Effort Cardiovascular: Regular Rate, Regular Rhythm GI/Abdominal Exam: Soft, No Distention, No Mass, Tender (lower abdomen ), Other (well healing midline and laparoscopic incisions). No: Guarding, Rigid, Rebound Extremities: Normal Inspection, Normal Range of Motion - Patient Data Lab Results Last 24 hrs: Laboratory Results - last 24 hr 10/05/17 10/05/17 Range/Units 05:30 05:30 WBC 12.60 H (4.0-11.0) K/uL RBC 4.98 (4.30-5.90) M/uL Hgb 15.7 (12.0-16.0) g/dL Hct 43.8 (36.0-46.0) % MCV 88.0 (80.0-98.0) fL MCH 31.5 (27.0-32.0) pg MCHC 35.8 (31.0-37.0) g/dL RDW Std Deviation 40.3 (28.0-62.0) fl RDW Coeff of Roma 13 (11.0-15.0) % Plt Count 344 (150-400) K/uL MPV 10.70 (7.40-12.00) fL Neut % (Auto) 87.9 H (48.0-80.0) % Lymph % (Auto) 6.5 L (16.0-40.0) % [place] % (Auto) 4.8 (0.0-15.0) % Eos % (Auto) 0.7 (0.0-7.0) % Baso % (Auto) 0.1 (0.0-1.5) % Neut # (Auto) 11.1 H (1.4-5.7) K/uL Lymph # (Auto) 0.8 (0.6-2.4) K/uL [place] # (Auto) 0.6 (0.0-0.8) K/uL Eos # (Auto) 0.1 (0.0-0.7) K/uL Baso # (Auto) 0.0 (0.0-0.1) K/uL Nucleated RBC % 0.0 /100WBC Nucleated RBCs # 0 K/uL Sodium 135 L (136-145) mmol/L Potassium 4.2 (3.5-5.1) mmol/L Chloride 99 (98-107) mmol/L Carbon Dioxide 22.8 (21.0-32.0) mmol/L BUN 8 (7.0-18.0) mg/dL Creatinine 0.8 (0.6-1.0) mg/dL Est Cr Clr Drug Dosing 92.02 mL/min Estimated GFR (MDRD) > 60.0 ml/min Glucose 119 H (74-106) mg/dL Calcium 9.1 (8.5-10.1) mg/dL Total Bilirubin 0.4 (0.2-1.0) mg/dL AST 50 H (15-37) IU/L ALT 129 H (14-63) IU/L Alkaline Phosphatase 207 H (46-116) U/L Total Protein 7.0 (6.4-8.2) g/dL Albumin 3.2 L (3.4-5.0) g/dL Globulin 3.8 H (2.0-3.5) g/dL Albumin/Globulin Ratio 0.8 L (1.3-2.8) Lipase 252 (73-393) U/L Result Diagrams: 10/05/17 05:30 10/05/17 05:30 - Problem List (1) [place]'s syndrome SNOMED Code(s): 70588309 ICD Code: K59.8 - OTHER SPECIFIED FUNCTIONAL INTESTINAL DISORDERS Status: Acute Current Visit: Yes Problem List Initiated/Reviewed/Updated: Yes Orders Last 24hrs: Active Orders 24 hr Category Date Time Status Abdomen Pelvis w Cont [CT] Stat Exams 10/05/17 05:26 Taken CULTURE BLOOD [BC] Stat Lab 10/05/17 05:35 Received CULTURE BLOOD [BC] Stat Lab 10/05/17 05:50 Received CULTURE URINE [RM] Stat Lab 10/05/17 05:26 Ordered UA W/MICROSCOPIC [URIN] Stat Lab 10/05/17 05:26 Ordered Sodium Chloride 0.9% [Saline Flush] Med 10/05/17 05:26 Active 10 ml FLUSH ASDIRECTED PRN Sodium Chloride 0.9% [Saline Flush] Med 10/05/17 05:26 Active 2.5 ml FLUSH ASDIRECTED PRN Sodium Chloride 0.9% [Saline Flush] Med 10/05/17 05:26 Active 2.5 ml FLUSH ASDIRECTED PRN Blood Culture x2 Reflex Set [OM.PC] Stat Ot 10/05/17 05:27 Ordered Saline Lock Insert [OM.PC] Stat Ot 10/05/17 05:26 Ordered Medication Orders Sodium Chloride (Saline Flush) 2.5 ml FLUSH ASDIRECTED PRN PRN Reason: Keep Vein Open Last Admin: 10/05/17 05:39 Dose: 2.5 ml Sodium Chloride (Saline Flush) 10 ml FLUSH ASDIRECTED PRN PRN Reason: Keep Vein Open Last Admin: 10/05/17 05:39 Dose: 10 ml Sodium Chloride (Saline Flush) 2.5 ml FLUSH ASDIRECTED PRN PRN Reason: Keep Vein Open Last Admin: 10/05/17 05:39 Dose: 2.5 ml Assessment/Plan Comment:: The patient has a WBC of 12K. She has mild elevation of her LFTs. A CT was performed. This showed moderate to severe distension of the cecum (max diameter 10 cm) consistent with ogilvies syndrome. She also has 7 x 2.8 fluid collection around the gallbladder bed. This could be a postoperative hematoma or biloma. She is complaining of left shoulder pain that is getting worse and this may be the cause. She has mildly elevated LFTs, but her bilirubin is normal. She is uncomfortable but she does not have peritoneal signs. We do not have HIDA scans available over the weekend. Will admit for close monitoring over the next 24 hours. She will be strictly NPO. I will resucitate her with IV fluids. I am sending a lactate, mag and phos. Will replace electrolytes. If she starts vomiting she will need an NG. I will given IV antibiotics. If she doesn't improve in the next 24 hours or her labs worsen I will transfer her to [place] for further cares.
[2017-10-05] MEDS ORDERED: diphenhydrAMINE 50 MG/ML SDV IVPUSH PRN (08:20)
[2017-10-05] MEDS: Lactated Ringers 1,000 ML IV SCH (08:41)
[2017-10-05] MEDS: Piperacillin/Tazobactam 3.375 GM in Sodium Chloride 0.9% 50 ML IV SCH ×3 (08:44→23:57)
[2017-10-05] MEDS: Ketorolac 30 MG/ML SDV IVPUSH SCH ×3 (08:47→21:22)
[2017-10-05] MEDS: HYDROmorphone 2 MG/ML SDV IVPUSH PRN ×4 (09:14→23:57)
[2017-10-05] MEDS ORDERED: Magnesium Sulfate/Water 2 GM in Premix Bag 1 BAG IV ONE (10:14)
[2017-10-05] MEDS: Ondansetron 4 MG/2 ML SDV IVPUSH PRN ×2 (11:42→21:33)
[2017-10-05 13:07] LABS: CHLORIDE,CL 102 mmol/L (98-107); SODIUM,NA 137 mmol/L (136-145)
--- NOTE | 2017-10-05 14:06 | PCM.SN ---
- Free Text/Narrative Note: I came to perform an abdominal exam on patient. Her new labs at 12pm show improvement. Her WBC is down to 11K. Her AST, ALT, and Alk Phos are down. She was able to rest this afternoon but was woken up by pain. She is getting scheduled toradol and IV dilaudid prn. She has had no vomiting. Her vitals remain stable. On physical exam she appears comfortable but is in mild distress. I palpated her abdomen. She has some tenderness in the RUQ, but no rebound or guarding. She has mild distension. She appears stable on clinical exam. Continue NPO, IVF, IV antibiotics and close abdominal monitoring.
--- NOTE | 2017-10-05 18:59 | PCM.SN ---
- Free Text/Narrative Note: Patient's vital signs were stable this afternoon. She feels like the pain medicine is working now. She is more comfortable but feels more distended. She denies nausea and has had no vomiting. She feels her bowels moving, but denies passing flatus or BM. On physical exam, she appears and feels slightly more distended. I listened for bowel sounds. They are present, but overall I don't hear many. She is non-tender. Her incisions still appear well healing. She is getting labs drawn for CBC, CMP, and lactate. Will follow up on these results.
[2017-10-05 21:05] LABS: CHLORIDE,CL 103 mmol/L (98-107); SODIUM,NA 136 mmol/L (136-145)
[2017-10-05] MEDS ORDERED: Scopolamine 1.5 MG Transdermal Patch TOP ONE (23:12)
--- NOTE | 2017-10-05 23:32 | PCM.SN ---
- Free Text/Narrative Note: Patient's 6pm labs show elevated Alk Phos and AST slight more elevated than admission. ALT is stable. Bilirubin is slightly up at 0.5. Her WBC is 11.6K up from 11. Her abdominal exam is unchanged and her vitals are stable. She got up to go to the bathroom and became nauseated. She was given a dose of zofran at 930. I ordered a second dose of zofran 4m IV one time. I ordered a scopalamine patch. If she vomits she will need to have an NG placed.
[2017-10-06] MEDS: Ketorolac 30 MG/ML SDV IVPUSH SCH ×4 (01:35→20:02)
[2017-10-06] MEDS: Lactated Ringers 1,000 ML IV SCH ×3 (02:50→22:17)
[2017-10-06] MEDS: HYDROmorphone 2 MG/ML SDV IVPUSH PRN ×4 (02:52→22:22)
[2017-10-06 06:05] LABS: CHLORIDE,CL 102 mmol/L (98-107); SODIUM,NA 135 mmol/L (136-145)
[2017-10-06] MEDS: Piperacillin/Tazobactam 3.375 GM in Sodium Chloride 0.9% 50 ML IV SCH ×3 (07:47→23:31)
--- NOTE | 2017-10-06 10:52 | PCM.SURGPN ---
- General Info Date of Service: 10/06/17 Functional Status: Reports: Pain Controlled, Tolerating Diet, Ambulating, Urinating - Review of Systems General: Reports: No Symptoms Pulmonary: Reports: No Symptoms Cardiovascular: Reports: No Symptoms Gastrointestinal: Reports: No Symptoms - Patient Data Vitals - Most Recent: Last Vital Signs Temp 36.8 C 10/06/17 08:00 Pulse 75 10/06/17 08:00 Resp 17 10/06/17 08:00 BP 123/72 10/06/17 08:00 Pulse Ox 95 10/06/17 08:00 Weight - Most Recent: 84 kg I&O - Last 24 Hours: Intake & Output 10/05/17 10/06/17 10/06/17 22:59 06:59 14:59 Intake Total 0 50 50 Output Total 1000 300 Balance -1000 -250 50 Lab Results Last 24 Hrs: Laboratory Results - last 24 hr 10/05/17 10/05/17 10/05/17 Range/Units 12:07 12:07 13:42 WBC 11.03 H (4.0-11.0) K/uL RBC 4.63 (4.30-5.90) M/uL Hgb 14.3 (12.0-16.0) g/dL Hct 40.9 (36.0-46.0) % MCV 88.3 (80.0-98.0) fL MCH 30.9 (27.0-32.0) pg MCHC 35.0 (31.0-37.0) g/dL RDW Std Deviation 40.8 (28.0-62.0) fl RDW Coeff of [place] 13 (11.0-15.0) % Plt Count 295 (150-400) K/uL MPV 10.60 (7.40-12.00) fL Neut % (Auto) (48.0-80.0) % Lymph % (Auto) (16.0-40.0) % [place] % (Auto) (0.0-15.0) % Eos % (Auto) (0.0-7.0) % Baso % (Auto) (0.0-1.5) % Neut # (Auto) (1.4-5.7) K/uL Lymph # (Auto) (0.6-2.4) K/uL [place] # (Auto) (0.0-0.8) K/uL Eos # (Auto) (0.0-0.7) K/uL Baso # (Auto) (0.0-0.1) K/uL Nucleated RBC % 0.0 /100WBC Nucleated RBCs # 0 K/uL Lactate (0.20-2.00) mmol/L Sodium 137 (136-145) mmol/L Potassium 3.9 (3.5-5.1) mmol/L Chloride 102 (98-107) mmol/L Carbon Dioxide 26.2 (21.0-32.0) mmol/L BUN 7 (7.0-18.0) mg/dL Creatinine 0.7 (0.6-1.0) mg/dL Est Cr Clr Drug Dosing 105.17 mL/min Estimated GFR (MDRD) > 60.0 ml/min Glucose 110 H (74-106) mg/dL Calcium 8.2 L (8.5-10.1) mg/dL Phosphorus (2.6-4.7) mg/dL Magnesium (1.8-2.4) mg/dL Total Bilirubin 0.3 (0.2-1.0) mg/dL AST 30 (15-37) IU/L ALT 98 H (14-63) IU/L Alkaline Phosphatase 175 H (46-116) U/L Total Protein 5.6 L (6.4-8.2) g/dL Albumin 2.8 L (3.4-5.0) g/dL Globulin 2.8 (2.0-3.5) g/dL Albumin/Globulin Ratio 1.0 L (1.3-2.8) Urine Color YELLOW Urine Appearance CLEAR Urine pH 6.0 (5.0-8.0) Ur Specific [place] 1.020 (1.001-1.035) Urine Protein NEGATIVE (NEGATIVE) mg/dL Urine Glucose (UA) NEGATIVE (NEGATIVE) mg/dL Urine Ketones >=80 (NEGATIVE) mg/dL Urine Occult Blood LARGE H (NEGATIVE) Urine Nitrite NEGATIVE (NEGATIVE) Urine Bilirubin SMALL H (NEGATIVE) Urine Ictotest NEGATIVE Urine Urobilinogen 0.2 (<2.0) EU/dL Ur Leukocyte Esterase NEGATIVE (NEGATIVE) Urine RBC 12-15 (0-2/HPF) Urine WBC 0-2 (0-5/HPF) Ur Epithelial Cells FEW (NONE-FEW) Urine Bacteria RARE (NEGATIVE) 10/05/17 10/05/17 10/05/17 Range/Units 19:08 19:08 19:08 WBC 11.68 H (4.0-11.0) K/uL RBC 4.41 (4.30-5.90) M/uL Hgb 13.7 (12.0-16.0) g/dL Hct 39.3 (36.0-46.0) % MCV 89.1 (80.0-98.0) fL MCH 31.1 (27.0-32.0) pg MCHC 34.9 (31.0-37.0) g/dL RDW Std Deviation 41.2 (28.0-62.0) fl RDW Coeff of [place] 13 (11.0-15.0) % Plt Count 283 (150-400) K/uL MPV 10.60 (7.40-12.00) fL Neut % (Auto) 77.3 (48.0-80.0) % Lymph % (Auto) 9.2 L (16.0-40.0) % [place] % (Auto) 9.8 (0.0-15.0) % Eos % (Auto) 3.5 (0.0-7.0) % Baso % (Auto) 0.2 (0.0-1.5) % Neut # (Auto) 9.0 H (1.4-5.7) K/uL Lymph # (Auto) 1.1 (0.6-2.4) K/uL [place] # (Auto) 1.1 H (0.0-0.8) K/uL Eos # (Auto) 0.4 (0.0-0.7) K/uL Baso # (Auto) 0.0 (0.0-0.1) K/uL Nucleated RBC % 0.0 /100WBC Nucleated RBCs # 0 K/uL Lactate 0.6 (0.20-2.00) mmol/L Sodium 136 (136-145) mmol/L Potassium 4.4 (3.5-5.1) mmol/L Chloride 103 (98-107) mmol/L Carbon Dioxide 27.3 (21.0-32.0) mmol/L BUN 6 L (7.0-18.0) mg/dL Creatinine 0.8 (0.6-1.0) mg/dL Est Cr Clr Drug Dosing 92.02 mL/min Estimated GFR (MDRD) > 60.0 ml/min Glucose 92 (74-106) mg/dL Calcium 8.5 (8.5-10.1) mg/dL Phosphorus (2.6-4.7) mg/dL Magnesium (1.8-2.4) mg/dL Total Bilirubin 0.5 (0.2-1.0) mg/dL AST 56 H (15-37) IU/L ALT 94 H (14-63) IU/L Alkaline Phosphatase 285 H (46-116) U/L Total Protein 5.9 L (6.4-8.2) g/dL Albumin 2.6 L (3.4-5.0) g/dL Globulin 3.3 (2.0-3.5) g/dL Albumin/Globulin Ratio 0.8 L (1.3-2.8) Urine Color Urine Appearance Urine pH (5.0-8.0) Ur Specific [place] (1.001-1.035) Urine Protein (NEGATIVE) mg/dL Urine Glucose (UA) (NEGATIVE) mg/dL Urine Ketones (NEGATIVE) mg/dL Urine Occult Blood (NEGATIVE) Urine Nitrite (NEGATIVE) Urine Bilirubin (NEGATIVE) Urine Ictotest Urine Urobilinogen (<2.0) EU/dL Ur Leukocyte Esterase (NEGATIVE) Urine RBC (0-2/HPF) Urine WBC (0-5/HPF) Ur Epithelial Cells (NONE-FEW) Urine Bacteria (NEGATIVE) 10/06/17 10/06/17 10/06/17 Range/Units 05:37 05:37 05:37 WBC 10.36 (4.0-11.0) K/uL RBC 4.15 L (4.30-5.90) M/uL Hgb 12.9 (12.0-16.0) g/dL Hct 37.1 (36.0-46.0) % MCV 89.4 (80.0-98.0) fL MCH 31.1 (27.0-32.0) pg MCHC 34.8 (31.0-37.0) g/dL RDW Std Deviation 40.8 (28.0-62.0) fl RDW Coeff of [place] 13 (11.0-15.0) % Plt Count 277 (150-400) K/uL MPV 10.50 (7.40-12.00) fL Neut % (Auto) 75.8 (48.0-80.0) % Lymph % (Auto) 10.0 L (16.0-40.0) % [place] % (Auto) 10.5 (0.0-15.0) % Eos % (Auto) 3.6 (0.0-7.0) % Baso % (Auto) 0.1 (0.0-1.5) % Neut # (Auto) 7.9 H (1.4-5.7) K/uL Lymph # (Auto) 1.0 (0.6-2.4) K/uL [place] # (Auto) 1.1 H (0.0-0.8) K/uL Eos # (Auto) 0.4 (0.0-0.7) K/uL Baso # (Auto) 0.0 (0.0-0.1) K/uL Nucleated RBC % 0.0 /100WBC Nucleated RBCs # 0 K/uL Lactate 0.6 (0.20-2.00) mmol/L Sodium 135 L (136-145) mmol/L Potassium 4.9 (3.5-5.1) mmol/L Chloride 102 (98-107) mmol/L Carbon Dioxide 28.8 (21.0-32.0) mmol/L BUN 7 (7.0-18.0) mg/dL Creatinine 0.8 (0.6-1.0) mg/dL Est Cr Clr Drug Dosing 92.02 mL/min Estimated GFR (MDRD) > 60.0 ml/min Glucose 97 (74-106) mg/dL Calcium 8.3 L (8.5-10.1) mg/dL Phosphorus (2.6-4.7) mg/dL Magnesium (1.8-2.4) mg/dL Total Bilirubin 0.4 (0.2-1.0) mg/dL AST 23 (15-37) IU/L ALT 73 H (14-63) IU/L Alkaline Phosphatase 254 H (46-116) U/L Total Protein 5.5 L (6.4-8.2) g/dL Albumin 2.4 L (3.4-5.0) g/dL Globulin 3.1 (2.0-3.5) g/dL Albumin/Globulin Ratio 0.8 L (1.3-2.8) Urine Color Urine Appearance Urine pH (5.0-8.0) Ur Specific [place] (1.001-1.035) Urine Protein (NEGATIVE) mg/dL Urine Glucose (UA) (NEGATIVE) mg/dL Urine Ketones (NEGATIVE) mg/dL Urine Occult Blood (NEGATIVE) Urine Nitrite (NEGATIVE) Urine Bilirubin (NEGATIVE) Urine Ictotest Urine Urobilinogen (<2.0) EU/dL Ur Leukocyte Esterase (NEGATIVE) Urine RBC (0-2/HPF) Urine WBC (0-5/HPF) Ur Epithelial Cells (NONE-FEW) Urine Bacteria (NEGATIVE) 10/06/17 Range/Units 05:37 WBC (4.0-11.0) K/uL RBC (4.30-5.90) M/uL Hgb (12.0-16.0) g/dL Hct (36.0-46.0) % MCV (80.0-98.0) fL MCH (27.0-32.0) pg MCHC (31.0-37.0) g/dL RDW Std Deviation (28.0-62.0) fl RDW Coeff of [place] (11.0-15.0) % Plt Count (150-400) K/uL MPV (7.40-12.00) fL Neut % (Auto) (48.0-80.0) % Lymph % (Auto) (16.0-40.0) % [place] % (Auto) (0.0-15.0) % Eos % (Auto) (0.0-7.0) % Baso % (Auto) (0.0-1.5) % Neut # (Auto) (1.4-5.7) K/uL Lymph # (Auto) (0.6-2.4) K/uL [place] # (Auto) (0.0-0.8) K/uL Eos # (Auto) (0.0-0.7) K/uL Baso # (Auto) (0.0-0.1) K/uL Nucleated RBC % /100WBC Nucleated RBCs # K/uL Lactate (0.20-2.00) mmol/L Sodium (136-145) mmol/L Potassium (3.5-5.1) mmol/L Chloride (98-107) mmol/L Carbon Dioxide (21.0-32.0) mmol/L BUN (7.0-18.0) mg/dL Creatinine (0.6-1.0) mg/dL Est Cr Clr Drug Dosing mL/min Estimated GFR (MDRD) ml/min Glucose (74-106) mg/dL Calcium (8.5-10.1) mg/dL Phosphorus 3.5 (2.6-4.7) mg/dL Magnesium 1.7 L (1.8-2.4) mg/dL Total Bilirubin (0.2-1.0) mg/dL AST (15-37) IU/L ALT (14-63) IU/L Alkaline Phosphatase (46-116) U/L Total Protein (6.4-8.2) g/dL Albumin (3.4-5.0) g/dL Globulin (2.0-3.5) g/dL Albumin/Globulin Ratio (1.3-2.8) Urine Color Urine Appearance Urine pH (5.0-8.0) Ur Specific [place] (1.001-1.035) Urine Protein (NEGATIVE) mg/dL Urine Glucose (UA) (NEGATIVE) mg/dL Urine Ketones (NEGATIVE) mg/dL Urine Occult Blood (NEGATIVE) Urine Nitrite (NEGATIVE) Urine Bilirubin (NEGATIVE) Urine Ictotest Urine Urobilinogen (<2.0) EU/dL Ur Leukocyte Esterase (NEGATIVE) Urine RBC (0-2/HPF) Urine WBC (0-5/HPF) Ur Epithelial Cells (NONE-FEW) Urine Bacteria (NEGATIVE) [place] Results Last 24 Hrs: Microbiology 10/05/17 05:50 Aerobic Blood Culture - Preliminary Blood - Arm, Left NO GROWTH AFTER 1 DAY Anaerobic Blood Culture - Preliminary NO GROWTH AFTER 1 DAY 10/05/17 05:35 Aerobic Blood Culture - Preliminary Blood - Venous NO GROWTH AFTER 1 DAY Anaerobic Blood Culture - Preliminary NO GROWTH AFTER 1 DAY Med Orders - Current: Current Medications Diphenhydramine HCl (Benadryl) 25 mg IVPUSH Q4H PRN PRN Reason: Itching Hydromorphone HCl (Dilaudid) 0.5 mg IVPUSH Q2HR PRN PRN Reason: Pain (severe 7-10) Last Admin: 10/06/17 02:52 Dose: 0.5 mg Lactated Ringer's (Ringers, Lactated) 1,000 mls @ 150 mls/hr IV ASDIRECTED [facility] Last Admin: 10/06/17 02:50 Dose: 150 mls/hr Piperacillin Sod/Tazobactam (Sod 3.375 gm/ Sodium Chloride) 50 mls @ 100 mls/ hr IV Q8H [facility] Last Admin: 10/06/17 07:47 Dose: 100 mls/hr Ketorolac Tromethamine (Toradol) 30 mg IVPUSH Q6H [facility] Stop: 10/10/17 14:30 Last Admin: 10/06/17 07:46 Dose: 30 mg Ondansetron HCl (Zofran) 4 mg IVPUSH Q6H PRN PRN Reason: Nausea/Vomiting Last Admin: 10/05/17 21:33 Dose: 4 mg Sodium Chloride (Saline Flush) 2.5 ml FLUSH ASDIRECTED PRN PRN Reason: Keep Vein Open Last Admin: 10/05/17 05:39 Dose: 2.5 ml Sodium Chloride (Saline Flush) 10 ml FLUSH ASDIRECTED PRN PRN Reason: Keep Vein Open Last Admin: 10/05/17 05:39 Dose: 10 ml Sodium Chloride (Saline Flush) 2.5 ml FLUSH ASDIRECTED PRN PRN Reason: Keep Vein Open Last Admin: 10/05/17 05:39 Dose: 2.5 ml Discontinued Medications Fentanyl (Sublimaze) 100 mcg IVPUSH ONETIME ONE Stop: 10/05/17 06:46 Last Admin: 10/05/17 06:57 Dose: Not Given Fentanyl (Sublimaze) Confirm Administered Dose 100 mcg .ROUTE .STK-MED ONE Stop: 10/05/17 06:51 Last Admin: 10/05/17 06:57 Dose: Not Given Fentanyl (Sublimaze) 100 mcg IVPUSH NOW STA Stop: 10/05/17 06:53 Last Admin: 10/05/17 06:53 Dose: 100 mcg Hydromorphone HCl (Dilaudid) 1 mg IVPUSH ONETIME ONE Stop: 10/05/17 05:27 Last Admin: 10/05/17 05:38 Dose: Not Given Hydromorphone HCl (Dilaudid) Confirm Administered Dose 1 mg .ROUTE .STK-MED ONE Stop: 10/05/17 05:32 Last Admin: 10/05/17 05:38 Dose: Not Given Hydromorphone HCl (Dilaudid) 1 mg IVPUSH ONETIME ONE Stop: 10/05/17 05:40 Last Admin: 10/05/17 05:40 Dose: 1 mg Hydromorphone HCl (Dilaudid) 1 mg IVPUSH ONETIME ONE Stop: 10/05/17 06:06 Last Admin: 10/05/17 06:08 Dose: 1 mg Hydromorphone HCl (Dilaudid) 1 mg IVPUSH ONETIME ONE Stop: 10/05/17 06:47 Last Admin: 10/05/17 06:56 Dose: 1 mg Sodium Chloride (Normal Saline) 1,000 mls @ 999 mls/hr IV .Bolus ONE Stop: 10/05/17 06:26 Last Admin: 10/05/17 05:37 Dose: 999 mls/hr Ceftriaxone Sodium/Dextrose 1 (gm/ Premix) 50 mls @ 100 mls/hr IV ONETIME ONE Stop: 10/05/17 06:19 Last Admin: 10/05/17 06:04 Dose: 100 mls/hr Magnesium Sulfate 2 gm/ Premix 50 mls @ 50 mls/hr IV ONETIME ONE Stop: 10/05/17 11:13 Last Admin: 10/05/17 10:28 Dose: 50 mls/hr Iopamidol (Isovue-370 (76%)) 100 ml IVPUSH ONETIME ONE Stop: 10/05/17 06:46 Last Admin: 10/05/17 06:49 Dose: 100 ml Ondansetron HCl (Zofran) 8 mg IVPUSH ONETIME ONE Stop: 10/05/17 05:31 Last Admin: 10/05/17 05:38 Dose: 8 mg Ondansetron HCl (Zofran) Confirm Administered Dose 8 mg .ROUTE .STK-MED ONE Stop: 10/05/17 05:32 Last Admin: 10/05/17 05:39 Dose: Not Given Ondansetron HCl (Zofran) 4 mg IVPUSH ONETIME ONE Stop: 10/05/17 23:15 Last Admin: 10/05/17 23:52 Dose: 4 mg Scopolamine (Transderm-Scop) 1.5 mg TOP ONETIME ONE Stop: 10/05/17 23:13 Last Admin: 10/05/17 23:53 Dose: 1.5 mg - Exam Wound/Incisions: Healing Well, No Drainage General: Alert, Oriented Lungs: Normal Respiratory Effort Cardiovascular: Regular Rate GI/Abdominal Exam: Soft, Non-Tender, No Distention, Distended (mild) Extremities: Normal Inspection, Normal Range of Motion Skin: Warm, Dry, Intact - 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 Code(s): K59.8 - OTHER SPECIFIED FUNCTIONAL INTESTINAL DISORDERS Status: Acute Current Visit: Yes - Problem List Review Problem List Initiated/Reviewed/Updated: Yes - My Orders Last 24 Hours: Active Orders 24 hr Category Date Time Status Abdomen 1V Flat [CR] Routine Exams 10/06/17 08:00 Taken CULTURE URINE [RM] Stat Lab 10/05/17 13:42 Ordered UA W/MICROSCOPIC [URIN] Stat Lab 10/05/17 13:42 Ordered Medication Orders Diphenhydramine HCl (Benadryl) 25 mg IVPUSH Q4H PRN PRN Reason: Itching Hydromorphone HCl (Dilaudid) 0.5 mg IVPUSH Q2HR PRN PRN Reason: Pain (severe 7-10) Last Admin: 10/06/17 02:52 Dose: 0.5 mg Admin: 10/05/17 23:57 Dose: 0.5 mg Admin: 10/05/17 21:34 Dose: 0.5 mg Admin: 10/05/17 11:26 Dose: 0.5 mg Admin: 10/05/17 09:14 Dose: 0.5 mg Lactated Ringer's (Ringers, Lactated) 1,000 mls @ 150 mls/hr IV ASDIRECTED [facility] Last Admin: 10/06/17 02:50 Dose: 150 mls/hr Infusion: 10/05/17 15:22 Dose: 150 mls/hr Admin: 10/05/17 08:41 Dose: 150 mls/hr Piperacillin Sod/Tazobactam (Sod 3.375 gm/ Sodium Chloride) 50 mls @ 100 mls/ hr IV Q8H [facility] Last Admin: 10/06/17 07:47 Dose: 100 mls/hr Infusion: 10/06/17 00:27 Dose: 100 mls/hr Admin: 10/05/17 23:57 Dose: 100 mls/hr Infusion: 10/05/17 16:30 Dose: 100 mls/hr Admin: 10/05/17 16:00 Dose: 100 mls/hr Infusion: 10/05/17 09:14 Dose: 100 mls/hr Admin: 10/05/17 08:44 Dose: 100 mls/hr Ketorolac Tromethamine (Toradol) 30 mg IVPUSH Q6H [facility] Stop: 10/10/17 14:30 Last Admin: 10/06/17 07:46 Dose: 30 mg Admin: 10/06/17 01:35 Dose: 30 mg Admin: 10/05/17 21:22 Dose: Admin: 10/05/17 14:04 Dose: 30 mg Admin: 10/05/17 08:47 Dose: 30 mg Ondansetron HCl (Zofran) 4 mg IVPUSH Q6H PRN PRN Reason: Nausea/Vomiting Last Admin: 10/05/17 21:33 Dose: 4 mg Admin: 10/05/17 11:42 Dose: 4 mg Sodium Chloride (Saline Flush) 2.5 ml FLUSH ASDIRECTED PRN PRN Reason: Keep Vein Open Last Admin: 10/05/17 05:39 Dose: 2.5 ml Sodium Chloride (Saline Flush) 10 ml FLUSH ASDIRECTED PRN PRN Reason: Keep Vein Open Last Admin: 10/05/17 05:39 Dose: 10 ml Sodium Chloride (Saline Flush) 2.5 ml FLUSH ASDIRECTED PRN PRN Reason: Keep Vein Open Last Admin: 10/05/17 05:39 Dose: 2.5 ml - Plan Plan (Free Text/Narrative):: Patient is feeling better this morning. She feels like her pain is under better control and less distended. She has started passing gas. Her abdominal XR this morning shows less colonic distension and the contrast that was in her ascending colon is now at the splenic flexure. She has gas all the way to the rectum. Will advance diet to ice chips alone for now and decrease her IVF rate to 100ml/hr. She continues to have shoulder pain and her LFTs are still elevated. Her bilirubin is still normal. Will obtain a HIDA scan tomorrow morning to rule out a bile leak. If there is no evidence of a leak will continue to advance diet as tolerated. If she has a leak she will be transfered to [facility].
[2017-10-06] MEDS ORDERED: Magnesium Sulfate/Water 4 GM in Premix Bag 1 BAG IV ONE (10:53)
[2017-10-07] MEDS: Ketorolac 30 MG/ML SDV IVPUSH SCH ×3 (05:34→15:28)
[2017-10-07 05:52] LABS: CHLORIDE,CL 104 mmol/L (98-107); SODIUM,NA 137 mmol/L (136-145)
[2017-10-07] MEDS: Lactated Ringers 1,000 ML IV SCH (07:22)
[2017-10-07] MEDS: HYDROmorphone 2 MG/ML SDV IVPUSH PRN (07:25)
[2017-10-07] MEDS: Piperacillin/Tazobactam 3.375 GM in Sodium Chloride 0.9% 50 ML IV SCH (07:56)
[2017-10-07] MEDS: HYDROmorphone 1 MG/ML Syringe IVPUSH PRN ×2 (11:15→17:49)
--- NOTE | 2017-10-07 11:33 | NM ---
EXAMINATION: Hepatobiliary scan HISTORY: Rule out bile leak, pain COMPARISON: CT dated 10/05/2017 TECHNIQUE: Anterior planar images obtained of the abdomen following the administration of 3.9 mCi of technetium 99m labeled vertebral foramen. Right lateral decubitus imaging also obtained at 60 minutes . FINDINGS: There is diffuse symmetric uptake within the liver. There is good opacification of the bili teetee tree with activity noted within the duodenum and small bowel. There is a small focus of uptake no matthew along the right aspect of the gallbladder fossa. This has the appearance of a Nubbin sign however is not adjacent to the common bile duct. Decubitus film demonstrates the small focus does not change or appear to have direct communication with the peritoneum and is likely confined. Alternatively thi s could represent activity within an accessory duct. IMPRESSION: 1. Small focus of uptake within the region of the lateral aspect of the gallbladder fossa, this does not appear to have free communication with the peritoneum as this does not change on delayed imaging. This may represent residual activity within the cystic duct or accessory duct. Definitive leak is no t noted.
[2017-10-07] MEDS ORDERED: Magnesium Citrate Solution 296 ML Bottle PO ONE (11:57)
[2017-10-07] MEDS ORDERED: Ciprofloxacin 500 MG Tab PO SCH (12:00)
[2017-10-07] MEDS: metroNIDAZOLE 250 MG Tab PO SCH ×2 (12:13→17:41)
[2017-10-07 17:05] VITALS: BP 130/70
--- NOTE | 2017-10-07 18:17 | CT ---
EXAM DATE: 10/05/17 PATIENT'S AGE: 27 Patient: SHARONA SILVA Facility: [place], [place] Site . Site : 1990 Study: CT Abdomen/Pelvis w/ cont. [id number]/[id number] 6:48:24 AM Ordering Physician: Adonay Gomez Final Report: INDICATION: Patient had multiple bilateral fallopian tube removal surgeries, and has been having severe pain ever since her last one about a week ago TECHNIQUE: CT Abdomen and pelvis with i.v. contrast. Coronal and sagittal reformats were obtained. CONTRAST: Intravenous COMPARISON: 09/29/2017 FINDINGS: Lower chest: Discoid atelectasis is seen in the lower lobes bilaterally. Liver: Unremarkable. Spleen: Unremarkable. Pancreas: Unremarkable. Gallbladder: New surgical clips are present near the evelyn hepatis but there is a fluid containing structure in the gallbladder fossa with punctate gas that can be due to a postoperative fluid collection or gallbladder. Kidney: Unremarkable. No kidney or ureteral stones or obstruction seen. Adrenal: Unremarkable. Bowel: Moderate to severe distention of the cecum is present measuring 10 cm in diameter with gradual transition to normal caliber at the level of the splenic flexure. The colon is opacified by oral contrast. The appendix is not identified. Vascular: Unremarkable. Lymph: Unremarkable. Peritoneum: A small amount of hemoperitoneum is seen within the cul-de-sac, not significantly changed from prior exam and likely related to recent surgery. No pneumoperitoneum is seen. Pelvis: Moderate distention of the bladder is noted. Stranding of the pelvic fat is present and likely related to recent surgery. Soft tissue: Unremarkable. Bone: Unremarkable for age. IMPRESSIONS: 1. A small amount of hemoperitoneum is seen within the cul-de-sac, not significantly changed from prior exam and likely related to recent surgery. 2. Moderate to severe distention of the cecum is present measuring 10 cm in diameter with gradual transition to normal caliber at the level of the splenic flexure. Findings may be due to a colonic ileus. 3. New surgical clips are present near the evelyn hepatis. Clinical correlation is recommended to determine if the patient has had interval cholecystectomy. There is an oblong fluid and gas collection in the gallbladder bed measures 7 x 2.8 cm. If there is recent history cholecystectomy, this may represent a postoperative hematoma or biloma and assessment with HIDA scan may be helpful. Dictated by Guero Bautista MD @ 10/05/2017 7:03:29 AM Please note that all CT scans at this facility use dose modulation, iterative reconstruction, and/or weight-based dosing when appropriate to reduce radiation dose to as low as reasonably achievable. Dictated by: Guero Bautista MD @ 10/05/2017 07:04:44 (Electronic Signature) Report Signed by Proxy. MTDD
--- NOTE | 2017-10-07 18:33 | PCM.DCSUM1 ---
Discharge Summary - Hospital Course Free Text/Narrative:: Patient is a 27 year old female who underwent an exploratory laparotomy, lysis of adhesions, and cholecystectomy last saturday. She presented saturday morning with acute abdominal and left shoulder pain. CT of the abdomen pelvis showed a dilated cecum consistent with Ogilvies Syndrome and fluid in the gallbladder fossa. She had a mild leukocytosis and transaminitis however her bilirubin was normal. She was admitted and kept strict NPO. Her electrolytes were replaced and IVF given. I did serial abdominal exams. She became slightly more distended but had no peritoneal signs. Her vitals remained stable. An abdominal film the next day showed stool moving into the transverse and descending colon. She had flatus. Her pain was under better control. Her WBC improved. Her liver enzymes stayed mildly elevated. This morning she underwent a HIDA scan that showed a small focus of bile along the lateral edge of the gallbladder fossa but no evidence of a tamar bile leak. I called her original surgeon. Since she appeared stable, the decision was made to advance her diet and switch her to oral antibiotics. She tolerated this well. I gave her magnesium citrate and she has had three bowel movements today. Her pain was well controlled on scheduled toradol and prn dilaudid. Today she is having no pain. She was cleared or discharge. 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 Notify Provider of: Fever, Increased Pain, Swelling and Redness, Drainage, Nausea and/or Vomiting Other/Special Instructions: Follow up with surgeon in [place] as scheduled. Stay on antibiotics until then. - Discharge Plan Prescriptions/Med Rec: metroNIDAZOLE 250 mg PO Q6H #42 tablet Home Medications: Home Meds Escitalopram [Lexapro] 10 mg PO DAILY #30 tablet 04/13/17 [Rx] oxyCODONE HCl/Acetaminophen [Percocet 10-325 mg Tablet] 1 each PO Q6HR PRN 10/05 [History] Ciprofloxacin HCl [Cipro] 500 mg PO BID #14 tablet 10/07/17 [Rx] metroNIDAZOLE 250 mg PO Q6H #42 tablet 10/07/17 [Rx] - Discharge Summary/Plan Comment DC Time >30 min.: No - General Info Functional Status: Reports: Pain Controlled, Tolerating Diet, Ambulating, Urinating - Review of Systems General: Reports: No Symptoms Pulmonary: Reports: No Symptoms Cardiovascular: Reports: No Symptoms Gastrointestinal: Reports: No Symptoms Musculoskeletal: Reports: No Symptoms - Patient Data Vitals - Most Recent: Last Vital Signs Temp 36.1 C 10/07/17 16:00 Pulse 66 10/07/17 16:00 Resp 16 10/07/17 16:00 BP 130/70 10/07/17 16:00 Pulse Ox 98 10/07/17 16:00 Weight - Most Recent: 84 kg I&O - Last 24 hours: Intake & Output 10/07/17 10/07/17 10/07/17 06:59 14:59 22:59 Intake Total 0 0 880 Output Total 800 0 650 Balance -800 0 230 Lab Results - Last 24 hrs: Laboratory Results - last 24 hr 10/07/17 10/07/17 Range/Units 05:18 05:18 WBC 5.61 (4.0-11.0) K/uL RBC 3.90 L (4.30-5.90) M/uL Hgb 11.9 L (12.0-16.0) g/dL Hct 34.7 L (36.0-46.0) % MCV 89.0 (80.0-98.0) fL MCH 30.5 (27.0-32.0) pg MCHC 34.3 (31.0-37.0) g/dL RDW Std Deviation 40.0 (28.0-62.0) fl RDW Coeff of Roma 13 (11.0-15.0) % Plt Count 247 (150-400) K/uL MPV 10.30 (7.40-12.00) fL Nucleated RBC % 0.0 /100WBC Nucleated RBCs # 0 K/uL Sodium 137 (136-145) mmol/L Potassium 4.3 (3.5-5.1) mmol/L Chloride 104 (98-107) mmol/L Carbon Dioxide 25.4 (21.0-32.0) mmol/L BUN 10 (7.0-18.0) mg/dL Creatinine 0.7 (0.6-1.0) mg/dL Est Cr Clr Drug Dosing 105.17 mL/min Estimated GFR (MDRD) > 60.0 ml/min Glucose 70 L (74-106) mg/dL Calcium 8.0 L (8.5-10.1) mg/dL Phosphorus 3.3 (2.6-4.7) mg/dL Magnesium 1.7 L (1.8-2.4) mg/dL Total Bilirubin 0.4 (0.2-1.0) mg/dL AST 13 L (15-37) IU/L ALT 47 (14-63) IU/L Alkaline Phosphatase 201 H (46-116) U/L Total Protein 5.3 L (6.4-8.2) g/dL Albumin 2.1 L (3.4-5.0) g/dL Globulin 3.2 (2.0-3.5) g/dL Albumin/Globulin Ratio 0.7 L (1.3-2.8) ITALIA Results - Last 24 hrs: Microbiology 10/05/17 13:42 Urine Culture - Final Urine, Clean Catch MIXED VANESSA <1000 CFU/ML 10/05/17 05:50 Aerobic Blood Culture - Preliminary Blood - Arm, Left NO GROWTH AFTER 2 DAYS Anaerobic Blood Culture - Preliminary NO GROWTH AFTER 2 DAYS 10/05/17 05:35 Aerobic Blood Culture - Preliminary Blood - Venous NO GROWTH AFTER 2 DAYS Anaerobic Blood Culture - Preliminary NO GROWTH AFTER 2 DAYS Med Orders - Current: Current Medications Ciprofloxacin (Ciprofloxacin Hcl) 500 mg PO BID [facility] Last Admin: 10/07/17 12:13 Dose: 500 mg Diphenhydramine HCl (Benadryl) 25 mg IVPUSH Q4H PRN PRN Reason: Itching Hydromorphone HCl (Dilaudid) 0.5 mg IVPUSH Q2H PRN PRN Reason: Pain (severe 7-10) Last Admin: 10/07/17 17:49 Dose: 0.5 mg Ketorolac Tromethamine (Toradol) 30 mg IVPUSH Q6H [facility] Stop: 10/10/17 14:30 Last Admin: 10/07/17 15:28 Dose: 30 mg Metronidazole (Metronidazole) 250 mg PO Q6H [facility] Last Admin: 10/07/17 17:41 Dose: 250 mg Ondansetron HCl (Zofran) 4 mg IVPUSH Q6H PRN PRN Reason: Nausea/Vomiting Last Admin: 10/05/17 21:33 Dose: 4 mg Sodium Chloride (Saline Flush) 2.5 ml FLUSH ASDIRECTED PRN PRN Reason: Keep Vein Open Last Admin: 10/05/17 05:39 Dose: 2.5 ml Sodium Chloride (Saline Flush) 10 ml FLUSH ASDIRECTED PRN PRN Reason: Keep Vein Open Last Admin: 10/05/17 05:39 Dose: 10 ml Sodium Chloride (Saline Flush) 2.5 ml FLUSH ASDIRECTED PRN PRN Reason: Keep Vein Open Last Admin: 10/05/17 05:39 Dose: 2.5 ml Discontinued Medications Fentanyl (Sublimaze) 100 mcg IVPUSH ONETIME ONE Stop: 10/05/17 06:46 Last Admin: 10/05/17 06:57 Dose: Not Given Fentanyl (Sublimaze) Confirm Administered Dose 100 mcg .ROUTE .STK-MED ONE Stop: 10/05/17 06:51 Last Admin: 10/05/17 06:57 Dose: Not Given Fentanyl (Sublimaze) 100 mcg IVPUSH NOW STA Stop: 10/05/17 06:53 Last Admin: 10/05/17 06:53 Dose: 100 mcg Hydromorphone HCl (Dilaudid) 1 mg IVPUSH ONETIME ONE Stop: 10/05/17 05:27 Last Admin: 10/05/17 05:38 Dose: Not Given Hydromorphone HCl (Dilaudid) Confirm Administered Dose 1 mg .ROUTE .STK-MED ONE Stop: 10/05/17 05:32 Last Admin: 10/05/17 05:38 Dose: Not Given Hydromorphone HCl (Dilaudid) 1 mg IVPUSH ONETIME ONE Stop: 10/05/17 05:40 Last Admin: 10/05/17 05:40 Dose: 1 mg Hydromorphone HCl (Dilaudid) 1 mg IVPUSH ONETIME ONE Stop: 10/05/17 06:06 Last Admin: 10/05/17 06:08 Dose: 1 mg Hydromorphone HCl (Dilaudid) 1 mg IVPUSH ONETIME ONE Stop: 10/05/17 06:47 Last Admin: 10/05/17 06:56 Dose: 1 mg Hydromorphone HCl (Dilaudid) 0.5 mg IVPUSH Q2HR PRN PRN Reason: Pain (severe 7-10) Last Admin: 10/07/17 07:25 Dose: 0.5 mg Sodium Chloride (Normal Saline) 1,000 mls @ 999 mls/hr IV .Bolus ONE Stop: 10/05/17 06:26 Last Admin: 10/05/17 05:37 Dose: 999 mls/hr Ceftriaxone Sodium/Dextrose 1 (gm/ Premix) 50 mls @ 100 mls/hr IV ONETIME ONE Stop: 10/05/17 06:19 Last Admin: 10/05/17 06:04 Dose: 100 mls/hr Lactated Ringer's (Ringers, Lactated) 1,000 mls @ 125 mls/hr IV ASDIRECTED [facility] Last Admin: 10/07/17 07:22 Dose: 150 mls/hr Piperacillin Sod/Tazobactam (Sod 3.375 gm/ Sodium Chloride) 50 mls @ 100 mls/ hr IV Q8H [facility] Last Admin: 10/07/17 07:56 Dose: 100 mls/hr Magnesium Sulfate 2 gm/ Premix 50 mls @ 50 mls/hr IV ONETIME ONE Stop: 10/05/17 11:13 Last Admin: 10/05/17 10:28 Dose: 50 mls/hr Magnesium Sulfate 4 gm/ Premix 100 mls @ 50 mls/hr IV ONETIME ONE Stop: 10/06/17 12:52 Last Admin: 10/06/17 11:42 Dose: 50 mls/hr Iopamidol (Isovue-370 (76%)) 100 ml IVPUSH ONETIME ONE Stop: 10/05/17 06:46 Last Admin: 10/05/17 06:49 Dose: 100 ml Magnesium Citrate (Citrate Of Magnesia) 296 ml PO ONETIME ONE Stop: 10/07/17 11:58 Last Admin: 10/07/17 12:12 Dose: 296 ml Ondansetron HCl (Zofran) 8 mg IVPUSH ONETIME ONE Stop: 10/05/17 05:31 Last Admin: 10/05/17 05:38 Dose: 8 mg Ondansetron HCl (Zofran) Confirm Administered Dose 8 mg .ROUTE .STK-MED ONE Stop: 10/05/17 05:32 Last Admin: 10/05/17 05:39 Dose: Not Given Ondansetron HCl (Zofran) 4 mg IVPUSH ONETIME ONE Stop: 10/05/17 23:15 Last Admin: 10/05/17 23:52 Dose: 4 mg Scopolamine (Transderm-Scop) 1.5 mg TOP ONETIME ONE Stop: 10/05/17 23:13 Last Admin: 10/05/17 23:53 Dose: 1.5 mg - Exam General: Reports: Alert, Oriented HEENT: Reports: Pupils Equal, Pupils Reactive Lungs: Reports: Normal Respiratory Effort Cardiovascular: Reports: Regular Rate GI/Abdominal Exam: Normal Bowel Sounds, Soft, Non-Tender, No Distention, No Mass Back Exam: Reports: Normal Inspection, Full Range of Motion Extremities: Normal Inspection Skin: Reports: Warm, Dry, Intact Wound/Incisions: Reports: Healing Well Neurological: Reports: No New Focal Deficit Psy/Mental Status: Reports: Alert, Normal Affect, Normal Mood
--- NOTE | 2017-10-07 20:40 | CR ---
EXAM DATE: 10/05/17 PATIENT'S AGE: 27 Patient: SHARONA SILVA Facility: [place], [place] Site . Site : 1990 Study: XRay Abdomen [id number]/8/2018 9:22:21 AM Ordering Physician: Deangelo Blandon Final Report: HISTORY: Ileus. TECHNIQUE: One view of the abdomen. COMPARISON: CT 10/05/2017. FINDINGS: Contrast material is present within the proximal 2/3 of the colon. Colon does not appear excessively distended. Gas is present within the sigmoid and rectal portions of the colon. Gas within a few nonspecific small bowel loops. Contrast material within the urinary bladder. Surgical clips in the right upper quadrant related prior cholecystectomy. IMPRESSION: 1. Contrast material within the colon. The colon does not appear excessively distended. 2. Overall appearance is not highly suggestive of a bowel obstruction. Dictated by Kris Quinonez MD @ 10/06/2017 9:33:56 AM Dictated by: Kris Quinonez MD @ 10/06/2017 09:34:14 (Electronic Signature) Report Signed by Proxy. DAVY
== END 2017-10-07 19:10 | disposition home or self-care (01) ==
LOC: MW.ED 05:13 → MW.MS 09:06
PROVIDERS: ADMIT Surgery; ATTEND Surgery
DX: K59.8 Other specified functional intestinal disorders (principal); J45.990 Exercise induced bronchospasm; F17.210 Nicotine dependence, cigarettes, uncomplicated; Z90.49 Acquired absence of other specified parts of digestive tract; Z90.722 Acquired absence of ovaries, bilateral; Z98.890 Other specified postprocedural states; Z79.899 Other long term (current) drug therapy
CPT/HCPCS: 36415; 74018; 74177; 78226; 80053; 81001; 83605; 83690; 83735; 84100; 85025; 85027; 87040; 87086; 96361; 96365; 96366; 96367; 96375; 96376; 99285; A9270; A9537; G0378; J0696; J1170; J1885; J2405; J2543; J3010; J3475; J7040; J7050; J7120; Q9967; 96374